=== PATIENT | male | born 1940 | race Caucasian/White ===

== ENCOUNTER 2018-12-26 17:08 | Inpatient (IN) ==
--- NOTE | 2018-12-26 17:44 | Emergency Department Note ---
Male Urogenital HPI - General Chief complaint: Urogenital-Male Stated complaint: Possible UTI Time Seen by Provider: 12/26/18 17:27 Mode of arrival: ambulatory - History of Present Illness HPI Narrative: 78-year-old male patient was referred to emergency department via his primary care provider for worsening dementia. Upon arrival is accompanied by his who tells me he's been diagnosed with dementia since 2016. He worsened significantly in 2018. Unfortunately last several weeks he has been much more forgetful and a bit more resistant to care. He had an appointment with another provider up in [place] and I'm told that he tried to leave his home half dressed ("without his underwear"). His contacted his new primary care provider who recommended he come to the emergency department for workup of potential UTI or other abnormality that may be causing some of his worsening symptoms. Upon arrival, patient is alert and talkative. He answers most likely questions appropriately with regard of who he is and where he is at. He did not know it was versus Sunday. She denies sites of pain. He denies recent fever, sweats, chills. He denies shortness of breath. He denies retrosternal chest pain or palpitations. He denies abdominal pain, nausea, vomiting, or diarrhea. He does admit to occasional dysuria. He denies hematuria. She denies focal weakness. He does use a cane for ambulation. A review of his active problems shows the following: Chronic kidney disease stag e IV, atherosclerosis, systolic CHF, polydipsia, shortness of breath, easy bruising, weakness, fatigue, neuropathy, glaucoma, DVT, prostatitis, urinary incontinence, epistaxis, degenerative joint disease, sleep apnea, hypertension, mitral valve insufficiency, ischemic cardiomyopathy, A. fib, hyperlipidemia, hydrocephalus, type 2 diabetes, eczema, polymyalgia rheumatica, YAZMIN. - Related Data Home Medications Medication Instructions Recorded Confirmed Aspirin [Ángel Chewable Aspirin] 81 mg PO DAILY 11/13/14 12/04/18 Clopidogrel [Plavix] 75 mg PO DAILY 11/13/14 12/04/18 Omeprazole [PriLOSEC] 20 mg PO ACB 11/13/14 12/26/18 Lacto.acidophilus-Bif.animalis 1 cap PO QDAY 01/29/17 12/26/18 atorvastatin 40 mg tablet 40 mg PO QDAY 01/29/17 12/04/18 duloxetine 60 mg capsule,delayed 60 mg PO QDAY 01/29/17 12/26/18 release hydrocodone 5 mg-acetaminophen 325 1 tab PO .Q4-6H tab 01/29/17 12/26/18 mg tablet memantine 10 mg tablet 10 mg PO BID 01/29/17 12/26/18 multivitamin 1 tab PO QDAY 01/29/17 12/26/18 budesonide 3 mg 6 mg PO QAM 07/25/18 12/04/18 capsule,delayed,extended release calcium carbonate 500 mg calcium 500 mg PO QDAY tab 07/25/18 12/04/18 (1,250 mg) tablet colestipol 1 gram tablet 1 g PO QDAY tab 07/25/18 12/04/18 nitroglycerin 0.4 mg sublingual 0.4 mg SUBLINGUAL Q5-15M PRN 07/25/18 12/26/18 tablet psyllium husk 3.4 gram/5.4 gram 1 tbsp PO QDAY 07/25/18 12/26/18 oral powder prednisone 1 mg tablet 3 mg PO QDAY tab 08/21/18 12/26/18 tamsulosin 0.4 mg capsule 0.4 mg PO QDAY 08/21/18 12/26/18 isosorbide mononitrate 30 mg 30 mg PO QHS tab 08/26/18 12/26/18 tablet,extended release 24 hr Previous Rx's Medication Instructions Recorded solifenacin 10 mg tablet 10 mg PO QDAY #30 tab 11/21/18 spironolactone 25 mg tablet 25 mg PO QDAY #90 tab 12/04/18 torsemide 20 mg tablet 60 mg PO QDAY #300 tab 12/04/18 Allergies Allergy/AdvReac Type Severity Reaction Status Date / Time niacin Allergy Unknown Unknown Verified 11/21/18 13:22 [From Niaspan Extended-Release] Review of Systems All systems ED: reviewed and negative except as stated. Past Medical History - Past Medical History Medical history: Reports: arthritis, atrial fibrillation, CHF, CAD (coronary artery disease), DM, hyperlipidemia, hypertension, renal disease, other (Obstructive sleep apnea, carotid arterial disease, ischemic cardiomyopathy, venous thromboembolism, idiopathic hydrocephalus) Surgical history ED: Reports: angioplasty/stent, coronary bypass (CABG), orthopedic, other (Carpal tunnel, foot, knee, hand, ulnar nerve), pacemaker/AICD - Social History smoking status: Former smoker Physical Exam Limitations: no limitations General appearance: alert, in no apparent distress Head: atraumatic, normocephalic Eye: Present: normal appearance, PERRL, EOMI. Absent: scleral icterus, conjunctival injection ENT: Present: normal oropharynx, mucous membranes moist Neck: Present: trachea midline. Absent: lymphadenopathy, thyromegaly Chest: Present: symmetric chest wall rise Respiratory: Present: normal lung sounds bilaterally. Absent: respiratory distress, wheezes, stridor, accessory muscle use, prolonged expiratory phase Cardiovascular: Present: regular rate, normal rhythm. Absent: systolic murmur, diastolic murmur Abdominal: Present: soft. Absent: distention, tenderness, guarding, rebound, rigidity, organomegaly, mass Extremities: Absent: pedal edema, pretibial edema, calf tenderness Neurological: Present: alert, oriented X3 (orientated to person, place, and time a day. Disorientated to day of week or 2 current events.). Absent: normal gait Psychiatric: Present: normal affect, normal mood Skin: Present: warm, dry Course Course Narrative: Patient was brought into the emergency department and a history and physical exam was performed. Saline lock was established and routine laboratory studies were drawn. Two-view chest x-ray was obtained and reviewed. Patient was given normal saline 250 mL bolus. A review of his laboratory studies show the following: CBC WBC 11.1, RBC 4.51, hemoglobin 12.6, hematocrit 39.5, granulocytes percent 90.6, granulocyte #10.1. CMP potassium 5.5, chloride 90, anion gap 17, BUN 108, creatinine 3.8, GFR 14, glucose 109, all others are normal limits. Lactic acid 1.9. Urinalysis showing clear yellow urine with specific gravity 1.013 and pH 6.0. Negative for evidence of infection. Chest x-ray read by the radiologist as no acute pulmonary parenchymal infiltrate or evidence of CHF. There was no interval change since 11/13/14. After reviewing all the data I reached out to the patient's correctional guard (Dr. Holly) and discussed the patient's case with him. At this time the correctional guard re commended that the patient be admitted to the hospital. He recommended gentle rehydration with normal saline at 100 ml/hour. He also mentioned discontinuing his diuretics while at hospitalized. He mentioned that he would follow the patient tomorrow morning. With this in mind, I reached out to the hospitalist (Dr. Deal) explaining my discussion with the correctional guard and the need for the patient be admitted. At this time Dr. Deal did consent to evaluate the patient admitted to the hospital. I spoke to the family and explained all of this to them. They verbalized understanding. Patient has remained hemodynamically stable throughout his entire time in the emergency department. As mentioned, he is going be admitted to the hospital under the care of Dr. Deal. All further treatment decisions and modalities will be carried out by the hospitalist. Vital Signs Temperature 97.3 F 12/26/18 17:09 Pulse Rate 96 H 12/26/18 17:09 Respiratory Rate 16 12/26/18 17:09 Blood Pressure 123/67 12/26/18 17:09 Pulse Oximetry (%) 96 12/26/18 17:09 Temperature 97.3 F 12/26/18 17:09 Pulse Rate 60 12/26/18 21:28 Respiratory Rate 18 12/26/18 21:28 Blood Pressure 139/71 12/26/18 21:28 Pulse Oximetry (%) 100 12/26/18 21:28 Urogenital-Male - Lab Data Lab results reviewed: Yes I reviewed the patient's lab results. Result diagrams: 12/26/18 18:01 12/26/18 18:01 Lab Results 12/26/18 12/26/18 12/26/18 Range/Units 18:01 18:01 19:24 WBC 11.1 H (4.5-11.0) K/mcL RBC 4.51 (4.50-5.90) M/mcL Hgb 12.6 L (13.5-16.5) g/dL Hct 39.5 L (41.0-55.0) % MCV 87.6 (80.0-100.0) fL MCH 28.0 (26.0-34.0) pg MCHC 32.0 (31.0-36.0) g/dL RDW 19.2 H (11.5-14.5) % Plt Count 296 (140-440) K/mcL MPV 8.6 (7.4-10.4) fL Gran % 90.6 H (38.0-78.0) % Lymph % (Auto) 3.5 L (15.5-49.0) % [place] % (Auto) 5.9 (1.0-12.0) % Eos % (Auto) 0 (0.0-7.0) % Baso % (Auto) 0 (0.0-2.0) % Gran # 10.1 H (1.8-8.0) K/mcL Lymph # (Auto) 0.4 L (1.5-4.8) K/mcL [place] # (Auto) 0.7 (0.1-0.9) K/mcL Eos # (Auto) 0 (0.0-0.7) K/mcL Baso # (Auto) 0 (0.0-0.3) K/mcL VBG Lactic Acid (0.5-2.0) mmol/L Sodium 134 (133-145) mmol/L Potassium 5.5 H (3.3-5.1) mmol/L Chloride 90 L (96-108) mmol/L Carbon Dioxide 27 (22-30) mmol/L Anion Gap 17.0 H (8-16) BUN 108 H* (8-23) mg/dl Creatinine 3.8 H (0.7-1.2) mg/dl GFR Calculation 14 Glucose 109 H (70-105) mg/dL Calcium 9.7 (8.6-10.4) mg/dl Total Bilirubin 0.5 (0.0-1.0) mg/dL AST 22 (0-37) U/l ALT 20 (0-40) U/l Alkaline Phosphatase 84 (39-117) U/L Total Protein 7.9 (5.9-8.4) gm/dL Albumin 4.4 (3.2-5.2) gm/dL Globulin 3.5 (2.2-3.7) gm/dL Albumin/Globulin Ratio 1.3 (1.0-2.3) Urine Color Yellow Urine Appearance Clear Urine pH 6.0 (5.0-9.0) Ur Specific [place] 1.013 (1.000-1.035) Urine Protein Neg (NEG) mg/dL Urine Glucose (UA) Negative (NEG) mg/dL Urine Ketones Neg (NEG) mg/dL Urine Occult Blood Neg (<0.03) mg/dL Urine Nitrate Neg (NEG) Urine Bilirubin Neg (NEG) mg/dL Urine Urobilinogen Neg (NEG) mg/dL Ur Leukocyte Esterase Neg (NEG) /uL 12/26/18 Range/Units 19:35 WBC (4.5-11.0) K/mcL RBC (4.50-5.90) M/mcL Hgb (13.5-16.5) g/dL Hct (41.0-55.0) % MCV (80.0-100.0) fL MCH (26.0-34.0) pg MCHC (31.0-36.0) g/dL RDW (11.5-14.5) % Plt Count (140-440) K/mcL MPV (7.4-10.4) fL Gran % (38.0-78.0) % Lymph % (Auto) (15.5-49.0) % [place] % (Auto) (1.0-12.0) % Eos % (Auto) (0.0-7.0) % Baso % (Auto) (0.0-2.0) % Gran # (1.8-8.0) K/mcL Lymph # (Auto) (1.5-4.8) K/mcL [place] # (Auto) (0.1-0.9) K/mcL Eos # (Auto) (0.0-0.7) K/mcL Baso # (Auto) (0.0-0.3) K/mcL VBG Lactic Acid 1.9 (0.5-2.0) mmol/L Sodium (133-145) mmol/L Potassium (3.3-5.1) mmol/L Chloride (96-108) mmol/L Carbon Dioxide (22-30) mmol/L Anion Gap (8-16) BUN (8-23) mg/dl Creatinine (0.7-1.2) mg/dl GFR Calculation Glucose (70-105) mg/dL Calcium (8.6-10.4) mg/dl Total Bilirubin (0.0-1.0) mg/dL AST (0-37) U/l ALT (0-40) U/l Alkaline Phosphatase (39-117) U/L Total Protein (5.9-8.4) gm/dL Albumin (3.2-5.2) gm/dL Globulin (2.2-3.7) gm/dL Albumin/Globulin Ratio (1.0-2.3) Urine Color Urine Appearance Urine pH (5.0-9.0) Ur Specific [place] (1.000-1.035) Urine Protein (NEG) mg/dL Urine Glucose (UA) (NEG) mg/dL Urine Ketones (NEG) mg/dL Urine Occult Blood (<0.03) mg/dL Urine Nitrate (NEG) Urine Bilirubin (NEG) mg/dL Urine Urobilinogen (NEG) mg/dL Ur Leukocyte Esterase (NEG) /uL - Radiology Data Radiology results reviewed: Yes I reviewed the patient's radiology results. Ordering Physician: Angus Crouch PA-C Date of Service: 12/26/18 Procedure(s): XR chest 2V Accession Number(s): [id number] INDICATION: Dyspnea TECHNIQUE: PA and lateral upright chest x-ray COMPARISON: Previous chest x-rays dated 11/13/2014, 07/15/2014, 03/01/2014 FINDINGS:Previous median sternotomy. No change in left transvenous pacemaker leads. There is a right-sided ventriculoperitoneal shunt catheter No focal pulmonary parenchymal infiltrate or mass. Heart size and vascularity are within normal limits. No evidence for congestive heart failure. There is a coronary stent identified. No acute abnormality or interval change IMPRESSION: 1. No acute pulmonary parenchymal infiltrate. No evidence for congestive heart failure 2. No acute abnormality or interval change since 11/13/2014 Interpreted and Authenticated by: Todd Leonardo 12/26/18 Disposition Pt seen by [facility]/PA only: Yes Clinical Impression: Acute on chronic renal failure Qualifiers: Acute renal failure type: unspecified Chronic kidney disease stage: stage 4 (severe) Qualified Code(s): N17.9 - Acute kidney failure, unspecified Dementia Qualifiers: Dementia type: unspecified type Dementia behavioral disturbance: with behavioral disturbance Qualified Code(s): F03.91 - Unspecified dementia with behavioral disturbance Congestive heart failure Qualifiers: Heart failure type: unspecified Heart failure chronicity: chronic Qualified Code(s): I50.9 - Heart failure, unspecified Disposition: Xfer As Inpt ([facility]) Condition: Fair Instructions: Heart Failure (ED), Chronic Kidney Disease (ED) Additional Instructions: The patient is being admitted to the hospital under the care of the hospitalist (Dr. Deal). All further treatment decisions and modalities will be carried out by the hospitalist. Referrals: Inderjit Veronica MD [Primary Care Provider] - Karan Holly MD [Physician] - Time of Disposition: 21:52
[2018-12-26] MEDS ORDERED: 0.9 % SODIUM CHLORIDE 250 ML IV ONE (17:53)
[2018-12-26 18:49] LABS: Basophils # (Auto) 0 K/mcL (0.0-0.3); Basophils % (Auto) 0 % (0.0-2.0); Eosinophils # (Auto) 0 K/mcL (0.0-0.7); Eosinophils % (Auto) 0 % (0.0-7.0); Granulocytes % (Auto) 90.6 % (38.0-78.0); Hematocrit 39.5 % (41.0-55.0); Hemoglobin 12.6 g/dL (13.5-16.5); Lymphocytes # (Auto) 0.4 K/mcL (1.5-4.8); Lymphocytes % (Auto) 3.5 % (15.5-49.0); Mean Cell Volume 87.6 fL (80.0-100.0); Mean Platelet Volume 8.6 fL (7.4-10.4); Monocytes # (Auto) 0.7 K/mcL (0.1-0.9); Monocytes % (Auto) 5.9 % (1.0-12.0); Platelet Count 296 K/mcL (140-440); RBC 4.51 M/mcL (4.50-5.90); Red Cell Distribution Width 19.2 % (11.5-14.5); WBC 11.1 K/mcL (4.5-11.0)
[2018-12-26 19:09] LABS: ALT/SGPT 20 U/l (0-40); AST/SGOT 22 U/l (0-37); Albumin 4.4 gm/dL (3.2-5.2); Albumin/Globulin Ratio 1.3 (1.0-2.3); Alkaline Phosphatase 84 U/L (39-117); Bilirubin,Total 0.5 mg/dL (0.0-1.0); Blood Urea Nitrogen 108 mg/dl (8-23); Calcium 9.7 mg/dl (8.6-10.4); Carbon Dioxide 27 mmol/L (22-30); Chloride 90 mmol/L (96-108); Globulin 3.5 gm/dL (2.2-3.7); Glomerular Filtration Rate 14; Glucose 109 mg/dL (70-105)
--- NOTE | 2018-12-26 19:09 | XRay Report ---
INDICATION: Dyspnea TECHNIQUE: PA and lateral upright chest x-ray COMPARISON: Previous chest x-rays dated 11/13/2014, 07/15/2014, 03/01/2014 FINDINGS:Previous median sternotomy. No change in left transvenous pacemaker leads. There is a right-sided ventriculoperitoneal shunt catheter No focal pulmonary parenchymal infiltrate or mass. Heart size and vascularity are within normal limits. No evidence for congestive heart failure. There is a coronary stent identified. No acute abnormality or interval change IMPRESSION: 1. No acute pulmonary parenchymal infiltrate. No evidence for congestive heart failure 2. No acute abnormality or interval change since 11/13/2014 Interpreted and Authenticated by: Todd Leonardo 12/26/18
[2018-12-26 20:31] LABS: Appearance,Urine CLEAR; Bilirubin,Urine NEG (NEG); Color,Urine YELLOW; Glucose,Urine (UA) NEGATIVE (NEG); Ketones,Urine NEG (NEG); Leukocyte Esterase,Urine NEG /uL (NEG); Nitrate,Urine NEG (NEG); Protein,Urine NEG (NEG); Specific Gravity,Urine 1.013 (1.000-1.035); Urine Blood NEG mg/dL (<0.03); Urobilinogen,Urine NEG (NEG)
--- NOTE | 2018-12-26 22:27 | Internal Med History&Physical ---
Medical - H&P: HPI Patient information: Note initiated : 12/26/18 at 10:25 pm Service Date, if different from initiated Date: [] Patient: Vini Garrett a 78 y/o M admitted on for Possible UTI. Chief Complaint: Acute renal failure on labs History of present illness: Mr. Garrett is a 78 year old M with a history of hypertension, diet controlled diabetes mellitus, CAD with ischemic cardiomyopathy, atrial fibrillation and CKD stage IV in the setting of Type 2 diabetes. History is obtained in speaking with the patient, which is somewhat limited due to cognitive impairment, as well as reviewing old records and speaking with the provider in the emergency department. Patient 78 as noted, has a history of dementia who was diagnosed in 2016, which appeared to worsen in 2018. He has worsened in the last few weeks, and his PCP had him sent to the emergency room for further evaluation to look for infection or other causes of worsening mentation. When I speak with the patient and ask him why he was here, he states his and brought him here and he was complaining that he was unable to swallow. This started yesterday and that food did not "want to go down" (I note he does see GI for a Schatzki's ring and has an upcoming appointment). When specifically asking about renal function, he notes that he continues to have good urine output, does not seem to have changed recently. His medications are set out in a pillbox and is been taking all of his prescribed meds, his helps to oversee his medications. He notes that his memory could be doing better and that he notes that he is forgetting things. Is not left items running or the stove turned on however. Otherwise, he notes no edema (appears he was having edema and rales on exam when seen by nephrology earlier this month, which point torsemide was increased and spironolactone was added to his regimen). He does not get short of breath when lying supine. He does have some shortness of breath however today, without cough or sputum production. He denies any chest pain or tightness. No abdominal pain, no nausea vomiting or diarrhea. He is noticed no focal weaknesses. He does bruise easily, which is chronic. Said no fevers or chills, no headache, no vision changes, no sore throat, no rhinorrhea. Evaluation in the ED was notable for BUN of 108 and a creatinine of 3.8. On December 04 his creatinine was 2.6, on September 24 it was 1.8. Patient is being hospitalized for acute renal failure. 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) Mild mitral insufficiency (Chronic) Sinus node dysfunction (Chronic) Hyperlipidemia (Chronic) Esophageal reflux (Chronic) Schatzki's ring PMR (polymyalgia rheumatica) (Chronic) YAZMIN (obstructive sleep apnea) (Chronic) Polydipsia (Chronic) Shortness of breath (Chronic) Blurred vision (Chronic) Back pain (Chronic) Lumbar degenerative disc disease (Chronic) Muscular weakness (Chronic) Joint pain (Chronic) Urine frequency (Chronic) Constipation (Chronic) Dyspnea on exertion (Chronic) Spinal stenosis (Chronic) Neuropathy (Chronic) Glaucoma (Chronic) Prostatitis (Chronic) Urinary incontinence (Chronic) Degenerative joint disease (Chronic) Bilateral feet Hydrocephalus, unspecified (Chronic) CTS (carpal tunnel syndrome) (Chronic) Eczema (Chronic) Polyneuropathy (Chronic) Insomnia (Chronic) Depression (Chronic) Surgical history: History of bilateral carpal tunnel release (Chronic ~2005) 2005 and 2006 History of coronary artery bypass graft x 2 (Chronic ~1997) History of foot surgery (Chronic ~1985) Left History of hand surgery (Chronic ~2016) Right hand lanvary History of heart artery stent (Chronic ~11/2013) Three heart stents placed History of knee surgery (Chronic ~1984) Bilateral; 1983 and 1984 History of pacemaker (Chronic ~11/2008) LIFT12 model #ZEDR-01, serial #[id number] History of surgery (Chronic ~06/2013) Right ulnar nerve S/P surgery on nasal septum (Chronic ~1977) Deviated septum Pertinent family history: Father , Onset Age: 68 Heart disease Mother , Onset Age: 81 Alzheimer disease GI malignancy Heart disease Grandfather Paternal Diabetes Paternal Brother , Onset Age: 59 Heart disease Myocardial infarction Social history: marital status: smoking status: Former smoker alcohol intake frequency: 0-2 drinks per day Medical - H&P: Meds Home Medications Medication Instructions Recorded Confirmed Type Aspirin [Ángel Chewable Aspirin] 81 mg PO DAILY 11/13/14 12/04/18 History Clopidogrel [Plavix] 75 mg PO DAILY 11/13/14 12/04/18 History Omeprazole [PriLOSEC] 20 mg PO ACB 11/13/14 12/26/18 History Lacto.acidophilus-Bif.animalis 1 cap PO QDAY 01/29/17 12/26/18 History atorvastatin 40 mg tablet 40 mg PO QDAY 01/29/17 12/04/18 History duloxetine 60 mg capsule,delayed 60 mg PO QDAY 01/29/17 12/26/18 History release hydrocodone 5 mg-acetaminophen 325 1 tab PO .Q4-6H tab 01/29/17 12/26/18 History mg tablet memantine 10 mg tablet 10 mg PO BID 01/29/17 12/26/18 History multivitamin 1 tab PO QDAY 01/29/17 12/26/18 History budesonide 3 mg 6 mg PO QAM 07/25/18 12/04/18 History capsule,delayed,extended release calcium carbonate 500 mg calcium 500 mg PO QDAY tab 07/25/18 12/04/18 History (1,250 mg) tablet colestipol 1 gram tablet 1 g PO QDAY tab 07/25/18 12/04/18 History nitroglycerin 0.4 mg sublingual 0.4 mg SUBLINGUAL Q5-15M PRN 07/25/18 12/26/18 History tablet psyllium husk 3.4 gram/5.4 gram 1 tbsp PO QDAY 07/25/18 12/26/18 History oral powder prednisone 1 mg tablet 3 mg PO QDAY tab 08/21/18 12/26/18 History tamsulosin 0.4 mg capsule 0.4 mg PO QDAY 08/21/18 12/26/18 History isosorbide mononitrate 30 mg 30 mg PO QHS tab 08/26/18 12/26/18 History tablet,extended release 24 hr solifenacin 10 mg tablet 10 mg PO QDAY #30 tab 11/21/18 12/26/18 Rx spironolactone 25 mg tablet 25 mg PO QDAY #90 tab 12/04/18 12/26/18 Rx torsemide 20 mg tablet 60 mg PO QDAY #300 tab 12/04/18 12/26/18 Rx Allergies Allergy/AdvReac Type Severity Reaction Status Date / Time niacin Allergy Unknown Unknown Verified 11/21/18 13:22 [From Niaspan Extended-Release] Medical - H&P: Exam - Constitutional Vitals: Temp Pulse Resp BP Pulse Ox 97.3 F 60 18 139/71 100 12/26/18 17:09 12/26/18 21:28 12/26/18 21:28 12/26/18 21:28 12/26/18 21:28 Exam: GENERAL: Alert, oriented, in no acute distress. Cooperative, appears stated age, sitting up in bed. HEENT: Atraumatic. PERRL at 3 mm, conjunctiva clear, no scleral icterus. Hearing grossly intact. Oropharynx with tacky mucous membranes, no lip or gum lesions. NECK: Supple without meningismus, no thyromegaly appreciated. RESPIRATORY: Moderate coarse rales at the right lower lung field, few rales at the left base. No wheezes or rhonchi. Respiratory effort is unlabored. CARDIOVASCULAR: Irregular rhythm, rate is controlled. No murmur appreciated. Well-healed median sternotomy scar. Trace peripheral edema with chronic stasis changes bilateral lower extremities. Carotid pulses 2+ without bruit. GI: Abdomen soft, nontender, no guarding or rebound. Bowel sounds are present. MUSCULOSKELETAL: No joint erythema or swelling, flexion contracture of the right hand. Otherwise normal range of motion in extremities. SKIN: Warm and dry, multiple ecchymoses of various stages, particularly in the upper extremities. Chronic stasis changes bilateral distal legs. Skin turgor is decreased. NEUROLOGIC: Cranial nerves II through XII grossly intact. Muscle mass diminished. Strength 5/5 in the upper and lower extremities for age. Sensation intact to light touch bilaterally. Deep tendon reflexes 2+ at the biceps and patella. PSYCHIATRIC: Alert, oriented to person, place, not quite sure why he is at the hospital however. Decreased insight into situation. Medical - H&P: Reslt - Labs CBC & Chem 7: 12/26/18 18:01 12/26/18 18:01 Labs: Short CBC 12/26/18 Range/Units 18:01 WBC 11.1 H (4.5-11.0) K/mcL Hgb 12.6 L (13.5-16.5) g/dL Hct 39.5 L (41.0-55.0) % Plt Count 296 (140-440) K/mcL BMP 12/26/18 18:01 Sodium 134 Potassium 5.5 H Chloride 90 L Carbon Dioxide 27 BUN 108 H* Creatinine 3.8 H Glucose 109 H Calcium 9.7 Liver Function 12/26/18 Range/Units 18:01 Total Bilirubin 0.5 (0.0-1.0) mg/dL AST 22 (0-37) U/l ALT 20 (0-40) U/l Alkaline Phosphatase 84 (39-117) U/L Albumin 4.4 (3.2-5.2) gm/dL Urine 12/26/18 Range/Units 19:24 Urine Color Yellow Urine Appearance Clear Urine pH 6.0 (5.0-9.0) Ur Specific [place] 1.013 (1.000-1.035) Urine Protein Neg (NEG) mg/dL Urine Glucose (UA) Negative (NEG) mg/dL - Imaging and Cardiology Chest x-ray Status: image reviewed by me Additional comments: IMPRESSION: 1. No acute pulmonary parenchymal infiltrate. No evidence for congestive heart failure 2. No acute abnormality or interval change since 11/13/2014 Medical - H&P: A/P - Narrative A/P Narrative: 78-year-old male with chronic kidney disease, most recently described as stage IV with creatinine of 2.6 on November 27 presenting with worsening mentation in the setting of known dementia, found to have acute on chronic renal failure. Acute renal failure on chronic kidney disease. Creatinine is up to 3.8 from 2.6 in 4 weeks, BUN from the 60s to 108. On December 04, torsemide was increased to 60 mg daily and spironolactone was added at 25 mg. This may represent overdiuresis and prerenal renal failure. Urinary sediment was bland without evidence of casts to suggest ATN. No other new medications concerning for AIN. He does have underlying bilateral renal artery stenoses, however less likely this represents progression of atherosclerotic renal disease. Plan: Inpatient admission Hold diuretics Gentle hydration with normal saline over night Follow renal function electrolytes Strict intake and output Avoid nephrotoxins Hyperkalemia. 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 Potassium is not critically elevated, reading of 5.5. Plan: Hydrate to improve renal function, hold spironolactone, telemetry monitoring. Ischemic cardiomyopathy with known coronary artery disease. Mention of echocardiogram in clinic notes, suggest concentric LVH with inferolateral wall motion abnormalities and ejection fraction of 50% (unclear how old these data are). Will need to monitor carefully for evidence of volume overload. Patient certainly looks dry currently and still has moderate crackles, right lower lung field greater than the left. He may have crackles from a primary pulmonary source and not from pulmonary edema. Plan: Continue medical management of CAD, except holding diuretics as above. Diet-controlled type 2 diabetes. Plan: Controlled carbohydrate/renal diet, low-dose sliding scale insulin. Hypertension, in part due to renal vascular causes. Blood pressure acceptable at this time Plan: Continue with nitrates. Loop diuretic and spinal lactone being held due t o renal failure. Overactive bladder, BPH. On Vesicare and tamsulosin at home. Plan: Continue Normochromic anemia. Mild. Appears stable. Suspect secondary to chronic kidney disease. Plan: Monitor. Prophylaxis: Subcutaneous heparin CODE STATUS: DO NOT RESUSCITATE
[2018-12-27] MEDS ORDERED: DEXTROSE 31 GM ORAL.SUSP PO PRN ×2 (00:06→17:53)
[2018-12-27] MEDS ORDERED: ONDANSETRON 4 MG/2 ML VIAL IV PRN ×2 (00:06→17:53)
[2018-12-27] MEDS ORDERED: HYDROcodone/APAP 5/325MG TABLET PO PRN ×2 (00:06→17:53)
[2018-12-27] MEDS ORDERED: DEXTROSE 50% 50 ML VIAL IV PRN ×2 (00:06→17:53)
[2018-12-27] MEDS ORDERED: ACETAMINOPHEN 325 MG TABLET PO PRN ×2 (00:06→17:53)
[2018-12-27] MEDS: 0.9 % SODIUM CHLORIDE 1,000 ML IV SCH ×3 (01:55→22:13)
[2018-12-27 05:27] LABS: Basophils # (Auto) 0 K/mcL (0.0-0.3); Basophils % (Auto) 0.3 % (0.0-2.0); Eosinophils # (Auto) 0.2 K/mcL (0.0-0.7); Eosinophils % (Auto) 1.5 % (0.0-7.0); Granulocytes % (Auto) 75.6 % (38.0-78.0); Hematocrit 33.4 % (41.0-55.0); Hemoglobin 10.9 g/dL (13.5-16.5); Lymphocytes % (Auto) 9.6 % (15.5-49.0); Mean Cell Volume 87.4 fL (80.0-100.0); Mean Corpuscular HGB Conc 32.8 g/dL (31.0-36.0); Mean Platelet Volume 8.6 fL (7.4-10.4); Monocytes # (Auto) 1.4 K/mcL (0.1-0.9); Platelet Count 249 K/mcL (140-440); RBC 3.82 M/mcL (4.50-5.90); Red Cell Distribution Width 18.9 % (11.5-14.5); WBC 10.7 K/mcL (4.5-11.0)
[2018-12-27] MEDS: 0.9 % SODIUM CHLORIDE 10 ML SYRINGE IV SCH ×3 (06:00→22:07)
[2018-12-27 06:17] LABS: Hemoglobin A1C 6.6 % HGB (4.0-6.0)
[2018-12-27 07:04] LABS: ALT/SGPT 14 U/l (0-40); AST/SGOT 21 U/l (0-37); Albumin 3.7 gm/dL (3.2-5.2); Albumin/Globulin Ratio 1.3 (1.0-2.3); Alkaline Phosphatase 68 U/L (39-117); Bilirubin,Direct < 0.2 mg/dL (0.0-0.3); Bilirubin,Total 0.5 mg/dL (0.0-1.0); Blood Urea Nitrogen 98 mg/dl (8-23); Carbon Dioxide 29 mmol/L (22-30); Chloride 98 mmol/L (96-108); Globulin 2.9 gm/dL (2.2-3.7); Glomerular Filtration Rate 17; Glucose 81 mg/dL (70-105); Lactate Dehydrogenase 306 U/L (94-250); Phosphorous 3.5 mg/dL (2.7-4.5); Triglycerides 116 mg/dl (<150); Uric Acid 11.6 mg/dL (2.5-8.0)
[2018-12-27] MEDS ORDERED: OMEPRAZOLE 20 MG CAPSULE PO SCH (07:30)
--- NOTE | 2018-12-27 08:04 | Nephrology Consult Note ---
History of Present Illness - Reason for Consult Patient information: Note initiated : 12/27/18 at 8:01 am Service Date, if different from initiated Date: [] Patient: Vini Garrett 78 y/o M admitted on 12/26/18 for Possible UTI. Chief Complaint: [] Consult date: 12/27/18 chronic renal failure - Chief Complaint Patient sent to ER with alteration in MS by PCP - History of Present Illness The patient is a 78 yr male with a baseline serum creatinine of around 2 mg/dl in the setting of known vascular disease, HTN, combined systolic and diastolic CHF, DM with HgA1c 6.5%. His urinalysis is w/o proteinuria so the most likely diagnosis of his decreased GFR is HTN and renovascular disease. Due to dementia and other comorbidities it was recommended by vascular surgery to not consider bypass or stenting of his renal arteries. When last seen in [facility] renal clinic, he was edematous and full of crackles, the prior Echo suggested a decreased EF of 45% (see below). His diuretic dose was doubled. The result was an increase in his BUN to >100 and Creatinine elevated to 3.8 mg/dl. His baseline is that of dementia and he requires his 's help to care for him. This has become difficult as she iis now receiving chemoRx at [facility]. The extent of his dementia, poor performance, lack of ADL skills has become more noticeable. The called his new PCP and recommended he head to the ED to rule-out any reversible causes of altered MS. In the ED there was no convincing evidence of a UTI, PNA or CVA. He was edema free and with worsening renal fx and an abnormal BUN/Cr ratio in the setting of his recent increase in loop diuretics, it seems he may be over diuresed. His BNP was elevated but the repeat ECHO today was read with diastolic dysfunction, LHV and no decrease in LVEF. His diuretic has been on hold and by morning there was some improvement in his BUN/Creatinine. Laboratory Results - last 48 hr 12/26/18 12/26/18 12/26/18 18:01 18:01 19:24 WBC 11.1 H RBC 4.51 Hgb 12.6 L Hct 39.5 L MCV 87.6 MCH 28.0 MCHC 32.0 RDW 19.2 H Plt Count 296 MPV 8.6 Gran % 90.6 H Lymph % (Auto) 3.5 L [place] % (Auto) 5.9 Eos % (Auto) 0 Baso % (Auto) 0 Gran # 10.1 H Lymph # (Auto) 0.4 L [place] # (Auto) 0.7 Eos # (Auto) 0 Baso # (Auto) 0 VBG Lactic Acid Sodium 134 Potassium 5.5 H Chloride 90 L Carbon Dioxide 27 Anion Gap 17.0 H BUN 108 H* Creatinine 3.8 H GFR Calculation 14 Glucose 109 H Hemoglobin A1c Estim Average Glucose Uric Acid Calcium 9.7 Phosphorus Magnesium Total Bilirubin 0.5 Direct Bilirubin GGT AST 22 ALT 20 Alkaline Phosphatase 84 Lactate Dehydrogenase Total Protein 7.9 Albumin 4.4 Globulin 3.5 Albumin/Globulin Ratio 1.3 Triglycerides Urine Color Yellow Urine Appearance Clear Urine pH 6.0 Ur Specific [place] 1.013 Urine Protein Neg Urine Glucose (UA) Negative Urine Ketones Neg Urine Occult Blood Neg Urine Nitrate Neg Urine Bilirubin Neg Urine Urobilinogen Neg Ur Leukocyte Esterase Neg 12/26/18 12/27/18 12/27/18 19:35 04:05 04:05 WBC 10.7 RBC 3.82 L Hgb 10.9 L Hct 33.4 L MCV 87.4 MCH 28.6 MCHC 32.8 RDW 18.9 H Plt Count 249 MPV 8.6 Gran % 75.6 Lymph % (Auto) 9.6 L [place] % (Auto) 13.0 H Eos % (Auto) 1.5 Baso % (Auto) 0.3 Gran # 8.1 H Lymph # (Auto) 1.0 L [place] # (Auto) 1.4 H Eos # (Auto) 0.2 Baso # (Auto) 0 VBG Lactic Acid 1.9 Sodium Potassium Chloride Carbon Dioxide Anion Gap BUN Creatinine GFR Calculation Glucose Hemoglobin A1c 6.6 H Estim Average Glucose 143 Uric Acid Calcium Phosphorus Magnesium Total Bilirubin Direct Bilirubin GGT AST ALT Alkaline Phosphatase Lactate Dehydrogenase Total Protein Albumin Globulin Albumin/Globulin Ratio Triglycerides Urine Color Urine Appearance Urine pH Ur Specific [place] Urine Protein Urine Glucose (UA) Urine Ketones Urine Occult Blood Urine Nitrate Urine Bilirubin Urine Urobilinogen Ur Leukocyte Esterase 12/27/18 04:05 WBC RBC Hgb Hct MCV MCH MCHC RDW Plt Count MPV Gran % Lymph % (Auto) [place] % (Auto) Eos % (Auto) Baso % (Auto) Gran # Lymph # (Auto) [place] # (Auto) Eos # (Auto) Baso # (Auto) VBG Lactic Acid Sodium 139 Potassium 4.6 Chloride 98 Carbon Dioxide 29 Anion Gap 12.0 BUN 98 H Creatinine 3.3 H GFR Calculation 17 Glucose 81 Hemoglobin A1c Estim Average Glucose Uric Acid 11.6 H Calcium 9.0 Phosphorus 3.5 Magnesium 2.8 H Total Bilirubin 0.5 Direct Bilirubin < 0.2 GGT 16 AST 21 ALT 14 Alkaline Phosphatase 68 Lactate Dehydrogenase 306 H Total Protein 6.6 Albumin 3.7 Globulin 2.9 Albumin/Globulin Ratio 1.3 Triglycerides 116 Urine Color Urine Appearance Urine pH Ur Specific [place] Urine Protein Urine Glucose (UA) Urine Ketones Urine Occult Blood Urine Nitrate Urine Bilirubin Urine Urobilinogen Ur Leukocyte Esterase Serum Creatinine While I expect his GFR to return towards baseline, this is only a partial cause in his mental status and functional status and the truth be known, he will likely require placement if his can no longer provide for his care in the home setting. His dementia and poor functional status make him an extremely poor dialysis candidate and I would argue for conservative treatment of his CKD. 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) Mild mitral insufficiency (Chronic) Sinus node dysfunction (Chronic) Hyperlipidemia (Chronic) Esophageal reflux (Chronic) Schatzki's ring PMR (polymyalgia rheumatica) (Chronic) YAZMIN (obstructive sleep apnea) (Chronic) Polydipsia (Chronic) Shortness of breath (Chronic) Blurred vision (Chronic) Back pain (Chronic) Lumbar degenerative disc disease (Chronic) Muscular weakness (Chronic) Joint pain (Chronic) Urine frequency (Chronic) Constipation (Chronic) Dyspnea on exertion (Chronic) Spinal stenosis (Chronic) Neuropathy (Chronic) Glaucoma (Chronic) Prostatitis (Chronic) Urinary incontinence (Chronic) Degenerative joint disease (Chronic) Bilateral feet Hydrocephalus, unspecified (Chronic) CTS (carpal tunnel syndrome) (Chronic) Eczema (Chronic) Polyneuropathy (Chronic) Insomnia (Chronic) Depression (Chronic) Surgical history: History of bilateral carpal tunnel release (Chronic ~2005) 2005 and 2006 History of coronary artery bypass graft x 2 (Chronic ~1997) History of foot surgery (Chronic ~1985) Left History of hand surgery (Chronic ~2016) Right hand lanvary History of heart artery stent (Chronic ~11/2013) Three heart stents placed History of knee surgery (Chronic ~1984) Bilateral; 1983 and 1984 History of pacemaker (Chronic ~11/2008) Rewalon model #ZEDR-01, serial #[id number] History of surgery (Chronic ~06/2013) Right ulnar nerve S/P surgery on nasal septum (Chronic ~1977) Deviated septum Pertinent family history: Father , Onset Age: 68 Heart disease Mother , Onset Age: 81 Alzheimer disease GI malignancy Heart disease Grandfather Paternal Diabetes Paternal Brother , Onset Age: 59 Heart disease Myocardial infarction Social history: marital status: smoking status: Former smoker alcohol intake frequency: 0-2 drinks per day Medications and Allergies Home Medications Medication Instructions Recorded Confirmed Type Aspirin [Ángel Chewable Aspirin] 81 mg PO DAILY 11/13/14 12/27/18 History Clopidogrel [Plavix] 75 mg PO DAILY 11/13/14 12/27/18 History Omeprazole [PriLOSEC] 20 mg PO ACB 11/13/14 12/26/18 History Lacto.acidophilus-Bif.animalis 1 cap PO QDAY 01/29/17 12/27/18 History atorvastatin 40 mg tablet 40 mg PO QDAY 01/29/17 12/27/18 History duloxetine 60 mg capsule,delayed 60 mg PO QDAY 01/29/17 12/27/18 History release memantine 10 mg tablet 10 mg PO BID 01/29/17 12/27/18 History multivitamin 1 tab PO QDAY 01/29/17 12/27/18 History budesonide 3 mg 9 mg PO QAM 07/25/18 12/27/18 History capsule,delayed,extended release calcium carbonate 500 mg calcium 500 mg PO QDAY tab 07/25/18 12/27/18 History (1,250 mg) tablet colestipol 1 gram tablet 3 g PO BID tab 07/25/18 12/27/18 History nitroglycerin 0.4 mg sublingual 0.4 mg SUBLINGUAL Q5-15M PRN 07/25/18 12/26/18 History tablet psyllium husk 3.4 gram/5.4 gram 1 tbsp PO QDAY 07/25/18 12/27/18 History oral powder tamsulosin 0.4 mg capsule 0.4 mg PO QDAY 08/21/18 12/26/18 History isosorbide mononitrate 30 mg 30 mg PO DAILY tab 08/26/18 12/27/18 History tablet,extended release 24 hr solifenacin 10 mg tablet 10 mg PO QDAY #30 tab 11/21/18 12/26/18 Rx spironolactone 25 mg tablet 25 mg PO QDAY #90 tab 12/04/18 12/27/18 Rx torsemide 20 mg tablet 60 mg PO QDAY #300 tab 12/04/18 12/27/18 Rx Losartan Potassium 50 mg PO DAILY 12/27/18 12/27/18 History predniSONE [Prednisone] 5 mg PO QAMCC 12/27/18 12/27/18 History Allergies Allergy/AdvReac Type Severity Reaction Status Date / Time niacin Allergy Unknown Unknown Verified 11/21/18 13:22 [From Niaspan Extended-Release] Exam - Vital Signs Vital signs: Temp Pulse Resp BP Pulse Ox 36.4 C 59 L 15 112/65 100 12/27/18 04:03 12/27/18 04:03 12/27/18 04:03 12/27/18 04:03 12/27/18 04:03 - General Appearance General appearance: chronically ill, fatigue EENT: ATNC, PERRL, hearing intact, vision intact Neck: no JVD, no thyromegaly, no carotid bruit Respiratory: rales Cardiology: no murmurs, edema (Trace edema and venous stasis changes), normal S1, normal S2 Gastrointestinal: normoactive bowel sounds, no tenderness, no guarding Neurologic: no focal deficit, alert and oriented x3 (Knew her was in a hospital but though he was in [facility], Knew [place], name, [employer]), confused, CN 3-12 intact Musculoskeletal: no erythema, erythema, no clubbing Psychiatric: depressed Results - Lab Results 12/27/18 04:05 12/27/18 04:05 Most recent lab results Calcium 9.0 mg/dl (8.6-10.4) 12/27/18 04:05 Phosphorus 3.5 mg/dL (2.7-4.5) 12/27/18 04:05 Magnesium 2.8 mg/dL (1.6-2.5) H 12/27/18 04:05 Assessment and Plan (1) Acute on chronic renal failure 1. Stop diuretics 2. Hydrate with NS for 24-48 hours 3. Repeat echo does not reveal L:VEF <45% more like diastolic dysfuntion 4. Anticipate continued improvement in GFR 5. Doubt improved GFR will make any difference in his dementia or poor performance status - consider placement Status: Acute Priority: High Qualifiers: Acute renal failure type: with other specified pathological lesion Chronic kidney disease stage: stage 4 (severe) Qualified Code(s): N17.8 - Other acute kidney failure; N18.4 - Chronic kidney disease, stage 4 (severe) (2) Dementia 1. Continue namenda 2. Treat diastolic dysfunction 3. Evaluate for placement Status: Chronic Priority: High Qualifiers: Dementia type: vascular dementia Dementia behavioral disturbance: with behavioral disturbance Qualified Code(s): F01.51 - Vascular dementia with behavioral disturbance (3) Atherosclerotic BISI (renal artery stenosis), bilateral 1. Follow with Dr Gilbert 2. Has been evaluated in past by Vascular surgery who did NOT recommend revascularization 3. This and hypertensive nephrosclerosis is the likely cause of CKD, lack of proteinuria argues against diabetic renal disease 4. Has unilateral renal atrophy. Priority: Medium Comment: No indication for revascularization as of mid 2018 (4) Paroxysmal atrial fibrillation 1. Diastolic dysfunction is worsened by loss of atria kick and over diuresis 2. Avoid tachycardia Status: Chronic Priority: Medium (5) Essential (primary) hypertension 1. Use diltiazem or beta-wendy to avoid tachycardia 2. Avoid ACEi, ARB, and spironolactone due to bilateral BISI 3. Nitrates and amlodipine as long as heart rate stay in the 70's 4. No diuretics for now Status: Chronic
[2018-12-27] MEDS: INSULIN LISPRO 1 UNIT/0.01 ML UNIT SQ SCH ×4 (08:16→22:06)
[2018-12-27] MEDS ORDERED: Solifenacin Succinate [Vesicare] 10 mg Tab PO SCH (09:00)
[2018-12-27] MEDS ORDERED: TAMSULOSIN 0.4 MG CAPSULE PO SCH (09:00)
[2018-12-27] MEDS ORDERED: PSYLLIUM HUSK 6 GM PACKET PO SCH (09:00)
[2018-12-27] MEDS ORDERED: DULoxetine 30 MG CAPSULE PO SCH (09:00)
[2018-12-27] MEDS ORDERED: MULTIVIT,THER IRON,CA,FA & MIN 1 TABLET PO SCH (09:00)
[2018-12-27] MEDS ORDERED: HEPARIN 5,000 UNIT/ML VIAL SQ SCH (09:00)
[2018-12-27] MEDS ORDERED: MEMANTINE 10 MG TABLET PO SCH (09:00)
[2018-12-27 10:48] LABS: Appearance,Urine CLEAR; Bacteria,Urine 0 /hpf (0); Bilirubin,Urine NEG (NEG); Color,Urine YELLOW; Culture Indicated,Urine NO; Glucose,Urine (UA) 50 mg/dL (NEG); Ketones,Urine NEG (NEG); Leukocyte Esterase,Urine NEG /uL (NEG); Mucus,Urine FEW /hpf (0); Nitrate,Urine NEG (NEG); Protein,Urine NEG (NEG); Specific Gravity,Urine 1.014 (1.000-1.035); Urine Blood NEG mg/dL (<0.03); Urine RBC 3 /hpf (0-1); Urine Squamous Epithelial Cell 1 /hpf (0-4); Urine WBC 0 /hpf (0-4); Urobilinogen,Urine NEG (NEG)
--- NOTE | 2018-12-27 12:57 | Internal Med Progress Note ---
Medical - PN: Subj Patient information: Note initiated : 12/27/18 at 12:53 pm Service Date, if different from initiated Date: [] Patient: Vini Garrett a 78 y/o M admitted on 12/26/18 for Possible UTI. Chief Complaint: Follow-up acute renal failure on CKD Interval history: 12/26 Mr. Garrett is a 78 year old M with a history of hypertension, diet controlled diabetes mellitus, CAD with ischemic cardiomyopathy, atrial fibrillation and CKD stage IV in the setting of Type 2 diabetes. History is obtained in speaking w ith the patient, which is somewhat limited due to cognitive impairment, as well as reviewing old records and speaking with the provider in the emergency department. Patient 78 as noted, has a history of dementia who was diagnosed in 2016, which appeared to worsen in 2018. He has worsened in the last few weeks, and his PCP had him sent to the emergency room for further evaluation to look for infection or other causes of worsening mentation. When I speak with the patient and ask him why he was here, he states his and brought him here and he was complaining that he was unable to swallow. This started yesterday and that food did not "want to go down" (I note he does see GI for a Schatzki's ring and has an upcoming appointment). When specifically asking about renal function, he notes that he continues to have good urine output, does not seem to have changed recently. His medications are set out in a pillbox and is been taking all of his prescribed meds, his helps to oversee his medications. He notes that his memory could be doing better and that he notes that he is forgetting things. Is not left items running or the stove turned on however. Otherwise, he notes no edema (appears he was having edema and rales on exam when seen by nephrology earlier this month, which point torsemide was increased and spironolactone was added to his regimen). He does not get short of breath when lying supine. He does have some shortness of breath however today, without cough or sputum production. He denies any chest pain or tightness. No abdominal pain, no nausea vomiting or diarrhea. He is noticed no focal weaknesses. He does bruise easily, which is chronic. Said no fevers or chills, no headache, no vision changes, no sore throat, no rhinorrhea. Evaluation in the ED was notable for BUN of 108 and a creatinine of 3.8. On December 04 his creatinine was 2.6, on September 24 it was 1.8. Patient is being hospitalized for acute renal failure. 12/27 Patient without complaints today. Creatinine has decreased to 3.3 with fluids overnight. No evidence of volume overload. Has been seen by nephrology. Echocardiogram is pending. Maintaining good urine output. - Constitutional Vitals: Vital Signs Temp Pulse Resp BP Pulse Ox 98.0 F 59 L 17 136/64 100 12/27/18 12:16 12/27/18 12:16 12/27/18 12:16 12/27/18 12:16 12/27/18 12:16 Period Temp Pulse Resp BP Sys/Blanco Pulse Ox Last 24 Hr 97.2 F-98.0 F 59-96 15-18 112-149/64-71 75-100 Intake and Output 12/26/18 12/27/18 12/27/18 21:59 05:59 13:59 Intake Total 228 64 1059 Output Total 350 352 Balance -501 09 1564 Weight 180 lb 178 lb 9.6 oz Intake & Output: Intake & Output 12/26/18 12/27/18 12/27/18 21:59 05:59 13:59 Intake Total 766 35 7721 Output Total 350 352 Balance -861 13 9705 Weight 180 lb 178 lb 9.6 oz Intake: IV 250 1000 Sodium Chloride 0.9% 1,000 ml @ 1000 100 mls/hr IV .Q10H [place] Rx#: [id number] Sodium Chloride 0.9% 250 ml @ 250 Wide Open IV BOLUS ONE Rx#: [id number] Oral 50 720 Output: Void Amount 350 350 Straight Cath #2 350 # of times incontinent of urine 2 Other: Meal Breakfast Percent of Meal Consumed 100% Feeding Ability Independent Urine Appearance Clear Straight Cath #2 Clear Urine Color Pale Straight Cath #2 Bright Yellow Urine Odor Strong Straight Cath #2 Normal Medical - PN: Obj Da - Labs CBC & Chem 7: 12/27/18 04:05 12/27/18 04:05 Labs: Abnormal Lab Results 12/27/18 12/27/18 12/27/18 10:04 09:28 04:05 WBC RBC Hgb Hct RDW Gran % Lymph % (Auto) [place] % (Auto) Gran # Lymph # (Auto) [place] # (Auto) Potassium Chloride Anion Gap BUN 98 H Creatinine 3.3 H Glucose Hemoglobin A1c Uric Acid 11.6 H Magnesium 2.8 H Lactate Dehydrogenase 306 H NT-Pro-B Natriuret Pep 3477.0 H Urine Glucose (UA) 50 A Urine RBC 3 H 12/27/18 12/27/18 12/26/18 04:05 04:05 18:01 WBC RBC 3.82 L Hgb 10.9 L Hct 33.4 L RDW 18.9 H Gran % Lymph % (Auto) 9.6 L [place] % (Auto) 13.0 H Gran # 8.1 H Lymph # (Auto) 1.0 L [place] # (Auto) 1.4 H Potassium 5.5 H Chloride 90 L Anion Gap 17.0 H BUN 108 H* Creatinine 3.8 H Glucose 109 H Hemoglobin A1c 6.6 H Uric Acid Magnesium Lactate Dehydrogenase NT-Pro-B Natriuret Pep Urine Glucose (UA) Urine RBC 12/26/18 18:01 WBC 11.1 H RBC Hgb 12.6 L Hct 39.5 L RDW 19.2 H Gran % 90.6 H Lymph % (Auto) 3.5 L [place] % (Auto) Gran # 10.1 H Lymph # (Auto) 0.4 L [place] # (Auto) Potassium Chloride Anion Gap BUN Creatinine Glucose Hemoglobin A1c Uric Acid Magnesium Lactate Dehydrogenase NT-Pro-B Natriuret Pep Urine Glucose (UA) Urine RBC Microbiology 12/27/18 00:15 MRSA (PCR) - Final Nose Meds: Medications Acetaminophen (Tylenol) 650 mg PO Q6HP PRN; Protocol PRN Reason: Per Pain Protocol/Fever > 101 Hydrocodone Bitart/Acetaminophen ([place] 5/325mg) 1 tab PO Q4-6HP PRN; Protocol PRN Reason: Pain Dextrose (Dextrose 50%) 0 ml IV UD PRN PRN Reason: Hypoglycemia Diagnostic Test (Pha) (Accu-Chek) 1 each FS ACHS [facility] Last Admin: 12/27/18 11:40 Dose: 1 each Documented by: Duloxetine HCl (Cymbalta) 60 mg PO QDAY [facility] Last Admin: 12/27/18 09:42 Dose: 60 mg Documented by: Glucose (Insta-Glucose) 15 gm PO PRN PRN PRN Reason: Hypoglycemia Heparin Sodium (Porcine) (Heparin) 5,000 unit SQ Q12 [facility] Last Admin: 12/27/18 09:42 Dose: 5,000 unit Documented by: Sodium Chloride (Sodium Chloride 0.9%) 1,000 mls @ 100 mls/hr IV .Q10H [facility] Last Admin: 12/27/18 12:07 Dose: 100 mls/hr Documented by: Insulin Human Lispro (Humalog) 0 unit SQ ACHS [facility]; Protocol Last Admin: 12/27/18 12:11 Dose: Not Given Documented by: Iron Carb/Multivit/[place]/Folic Acid (Multivitamin W/Minerals) 1 tab PO DAILY [facility] Last Admin: 12/27/18 09:42 Dose: 1 tab Documented by: Isosorbide Mononitrate (Imdur) 30 mg PO QHS [facility] Memantine (Namenda) 10 mg PO BID [facility] Last Admin: 12/27/18 09:42 Dose: 10 mg Documented by: Omeprazole (Prilosec) 20 mg PO ACB [facility] Last Admin: 12/27/18 08:17 Dose: 20 mg Documented by: Ondansetron HCl (Zofran) 4 mg IV Q4HP PRN; Protocol PRN Reason: Nausea And Vomiting Solifenacin Succinate [Vesicare] 10 Mg Tab 1 dose PO QDAY [facility] Prednisone (Prednisone) 3 mg PO QAC [facility] Psyllium Hydrophilic Mucilloid (Metamucil) 6 gm PO DAILY [facility] Last Admin: 12/27/18 09:42 Dose: 6 gm Documented by: Sodium Chloride (Saline Flush) 10 ml IV Q8 [facility] Last Admin: 12/27/18 06:00 Dose: Not Given Documented by: Tamsulosin HCl (Flomax) 0.4 mg PO QDAY [facility] Last Admin: 12/27/18 09:42 Dose: 0.4 mg Documented by: Medical - PN: A/P - Time Spent With Patient Total time spent is greater than 50% in coordination of care (as documented) at patient's floor/unit and/or counseling patient: 25 - 35 minutes - Narrative A/P Narrative: 78-year-old male with chronic kidney disease, most recently described as stage IV with creatinine of 2.6 on November 27 presenting with worsening mentation in the setting of known dementia, found to have acute on chronic renal failure. Acute renal failure on chronic kidney disease. Improving. At presentation, creatinine was 3.8 increased from 2.6 in 4 weeks, BUN from the 60s to 108. On December 04, torsemide was increased to 60 mg daily and spironolactone was added at 25 mg. This may represent overdiuresis and prerenal renal failure. Urinary sediment was bland without evidence of casts to suggest ATN. No other new medications concerning for AIN. He does have underlying bilateral renal artery stenoses, however less likely this represents progression of atherosclerotic renal disease. Plan: Continue with gentle hydration Continue to hold diuretics Follow-up echocardiogram Follow renal function and electrolytes Strict intake and output Avoid nephrotoxins Hyperkalemia. Resolved. 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 Potassium is not critically elevated, reading of 5.5 at time of admission. Plan: Continue to monitor with hydration, holding spinal lactone. Can likely downgrade from telemetry later today. Ischemic cardiomyopathy with known coronary artery disease. Prior EF 45-50% mentioned in notes. Current echocardiogram is pending. Will need to monitor carefully for evidence of volume overload. Patient appeared to dry at admission, though had moderate crackles, right lower lung field greater than the left. He may have crackles from a primary pulmonary source and not from pulmonary edema. Plan: Continue medical management of CAD, except holding diuretics as above. Diet-controlled type 2 diabetes. Plan: Controlled carbohydrate/renal diet, low-dose sliding scale insulin. Hypertension, in part due to renal vascular causes. Blood pressure acceptable at this time Plan: Continue with nitrates. Loop diuretic and spironolactone being held due to renal failure. Overactive bladder, BPH. On Vesicare and tamsulosin at home. Plan: Continue Normochromic anemia. Mild. Appears stable. Suspect secondary to chronic kidney disease. Plan: Monitor. Prophylaxis: Subcutaneous heparin CODE STATUS: DO NOT RESUSCITATE D Medical - PN: Qual - VTE Deep Vein Thrombosis/Pulmonary Embolism Present on Admission: No
[2018-12-27] MEDS ORDERED: ISOSORBIDE MONONITRATE 30 MG TAB.XL.24H PO SCH (21:00)
[2018-12-27] MEDS: HEPARIN 5,000 UNIT/ML VIAL SQ SCH (22:06)
[2018-12-27] MEDS: ISOSORBIDE MONONITRATE 30 MG TAB.XL.24H PO SCH (22:07)
[2018-12-27] MEDS: MEMANTINE 10 MG TABLET PO SCH (22:07)
[2018-12-28] MEDS: 0.9 % SODIUM CHLORIDE 10 ML SYRINGE IV SCH ×3 (05:59→20:30)
[2018-12-28 07:24] LABS: ALT/SGPT 13 U/l (0-40); AST/SGOT 24 U/l (0-37); Albumin 3.3 gm/dL (3.2-5.2); Albumin/Globulin Ratio 1.2 (1.0-2.3); Alkaline Phosphatase 64 U/L (39-117); Bilirubin,Direct < 0.2 mg/dL (0.0-0.3); Bilirubin,Total 0.5 mg/dL (0.0-1.0); Blood Urea Nitrogen 66 mg/dl (8-23); Calcium 8.8 mg/dl (8.6-10.4); Carbon Dioxide 23 mmol/L (22-30); Chloride 105 mmol/L (96-108); Globulin 2.8 gm/dL (2.2-3.7); Glomerular Filtration Rate 31; Glucose 89 mg/dL (70-105); Lactate Dehydrogenase 310 U/L (94-250); Phosphorous 2.6 mg/dL (2.7-4.5); Triglycerides 97 mg/dl (<150); Uric Acid 8.8 mg/dL (2.5-8.0)
[2018-12-28] MEDS: INSULIN LISPRO 1 UNIT/0.01 ML UNIT SQ SCH ×4 (07:36→20:23)
[2018-12-28] MEDS: OMEPRAZOLE 20 MG CAPSULE PO SCH (07:36)
[2018-12-28] MEDS ORDERED: predniSONE 1 MG TABLET PO SCH (08:00)
[2018-12-28] MEDS: TAMSULOSIN 0.4 MG CAPSULE PO SCH (08:23)
[2018-12-28] MEDS: MEMANTINE 10 MG TABLET PO SCH ×2 (08:24→20:29)
[2018-12-28] MEDS: predniSONE 1 MG TABLET PO SCH (08:24)
[2018-12-28] MEDS: DULoxetine 30 MG CAPSULE PO SCH (08:24)
[2018-12-28] MEDS: MULTIVIT,THER IRON,CA,FA & MIN 1 TABLET PO SCH (08:24)
[2018-12-28] MEDS: HEPARIN 5,000 UNIT/ML VIAL SQ SCH ×2 (08:25→20:29)
[2018-12-28] MEDS: PSYLLIUM HUSK 6 GM PACKET PO SCH (08:25)
[2018-12-28] MEDS: Solifenacin Succinate [Vesicare] 10 mg Tab PO SCH (08:31)
[2018-12-28] MEDS: 0.9 % SODIUM CHLORIDE 1,000 ML IV SCH (08:35)
[2018-12-28] MEDS ORDERED: PNEUMOCOCCAL 23-VAL P-SAC VAC 0.5 ML SYRINGE IM ONE (10:00)
[2018-12-28] MEDS ORDERED: FLU VACC QS2019-20(6MOS UP)/PF 60 MCG/0.5 ML SYRINGE IM ONE (10:00)
--- NOTE | 2018-12-28 13:57 | Nephrology Progress Note ---
Subjective Patient information: Note initiated : 12/28/18 at 1:47 pm Service Date, if different from initiated Date: [] Patient: Vini Garrett 78 y/o M admitted on 12/26/18 for Possible UTI. Chief Complaint: [] Principal diagnosis: ARF on CKD 4 Interval history: With IV hydration, this patient's GFR has returned to normal. He is ambulatory with a walker but not steady, as there is no assistance at home as his is frail and undergoing chemotherapy. Will need PT/OT to achieve maximal safety and minimal care that may be provided by the If that fails, NHP GFR is back to normal Avoid or minimize diuretics as he lung exam is full of crackles but may be more related to chronic interstitial lung disease, fibrosis, or chronic changes of long standing CHF. At any rate attempts to diurese this patient led to only a rapid decline in GFR and no worsening improvement in his vascular disease His major problems stem from vascular disease now beyond the point of intervention (PVS, BISI, ASCAD and CVD with vascular dementia). Cardiac concepcion his prior Echo was chronic systolic CHF with EF 45%, most resent is chronic diastolic CHF => so I guess he has chronic systolic and diastolic CHF. Pertinent ROS: Feels good, eating and able to ambulate with walker AND supervision Additional PMFSH (Level 3 Only): Social Hx: Cannot be cared for safely at home at this time Objective - Vital Signs Vital signs: Vital Signs Temp Pulse Pulse Resp BP BP Pulse Ox 12/28/18 12:38 36.6 C 60 153/82 97 12/28/18 12:30 36.6 C 18 153/82 95 12/28/18 08:30 97 12/28/18 07:38 36.3 C 59 L 16 140/70 97 12/28/18 00:00 36.6 C 71 18 128/69 100 12/27/18 20:00 100 12/27/18 19:06 36.6 C 64 17 115/65 100 12/27/18 19:00 36.6 C 64 18 115/65 100 12/27/18 16:45 35.9 C L 16 114/69 99 Intake and Output 12/27/18 12/28/18 12/28/18 21:59 05:59 13:59 Intake Total 540 1000 1872 Output Total 476 302 202 Balance 64 318 1670 Intake: IV 1000 1392 Sodium Chloride 0.9% 1,000 ml @ 1000 1392 100 mls/hr IV .Q10H [facility] Rx#: [id number] Oral 540 480 Output: Urine Catheter Amount 150 Void Amount 475 150 200 # of times incontinent of urine 1 2 2 Other: Meal Dinner Breakfast Percent of Meal Consumed 100% 100% Feeding Ability Assist with Tray Set Up Urine Appearance Clear Clear Urine Color Bright Yellow Bright Yellow Urine Odor Normal Normal Stool Size Small Stool Color Brown Stool Consistency Formed # Voids 1 # Bowel Movements 1 Weight 82.917 kg Intake & Output: Intake & Output 12/27/18 12/28/18 12/28/18 21:59 05:59 13:59 Intake Total 540 1000 1872 Output Total 476 302 202 Balance 64 698 1670 Weight 82.917 kg Intake: IV 1000 1392 Sodium Chloride 0.9% 1,000 ml @ 1000 1392 100 mls/hr IV .Q10H [facility] Rx#: [id number] Oral 540 480 Output: Urine Catheter Amount 150 Void Amount 475 150 200 # of times incontinent of urine 1 2 2 Other: Meal Dinner Breakfast Percent of Meal Consumed 100% 100% Feeding Ability Assist with Tray Set Up Urine Appearance Clear Clear Urine Color Bright Yellow Bright Yellow Urine Odor Normal Normal Stool Size Small Stool Color Brown Stool Consistency Formed # Voids 1 # Bowel Movements 1 - General Appearance General appearance: well-developed, chronically ill, frail EENT: ATNC, PERRL, mucous membranes moist Neck: no JVD, no carotid bruit Respiratory: kyphosis, no scoliosis, rales (Dry velcro rales, present for months and refractory to diuresis) Cardiology: no murmurs, no rub, no gallops, regular rate, regular rhythm Gastrointestinal: normoactive bowel sounds, no guarding Integumentary: ecchymotic Neurologic: no focal deficit Musculoskeletal: deformities, no clubbing - Lab 12/27/18 04:05 12/28/18 03:54 Most recent lab results Calcium 8.8 mg/dl (8.6-10.4) 12/28/18 03:54 Phosphorus 2.6 mg/dL (2.7-4.5) L 12/28/18 03:54 Magnesium 2.4 mg/dL (1.6-2.5) 11/02/19 03:54 - Imaging Kidney/bladder ultrasound: report reviewed - Allied health notes Allied health notes reviewed: case management Assessment and Plan (1) Acute on chronic renal failure 1. ARF component resolved with IVF and cessation of diuretics 2. Trend Renal function 3. Discharge with appropriate placement level - ?SNF\ 4. Diuretic dosing to be determined at time of discharge, none for now Status: Acute Priority: High Qualifiers: Acute renal failure type: with other specified pathological lesion Chronic kidney disease stage: stage 4 (severe) Qualified Code(s): N17.8 - Other acute kidney failure; N18.4 - Chronic kidney disease, stage 4 (severe) (2) Dementia 1. This is as good as it gets. Back to my outpatient baseline. Decision making is poor, therefore need assistance at home. 2. Continue namenda and treatment for vascular disease Status: Chronic Priority: High Qualifiers: Dementia type: vascular dementia Dementia behavioral disturbance: with behavioral disturbance Qualified Code(s): F01.51 - Vascular dementia with behavioral disturbance (3) Atherosclerotic BISI (renal artery stenosis), bilateral 1. Bilateral and no intervention indicated per vascular surgeon. 2. Avoid RAASI as if truely critical BISI bilaterally, upsetting the renin/angio/prem axis will cause rapid decline in GFR. 3 Avoid decreased volume due to renin mediated HTN and diastolic CHF Priority: Medium Comment: No indication for revascularization as of mid 2019 (4) Paroxysmal atrial fibrillation 1. Avoid overdiuresis 2. Control HR Status: Chronic Priority: Medium (5) Essential (primary) hypertension 1. Add hydralazine 10 mg BID to Isosorbide mononitrate 30 mg q Day 2. Goal BP <130/80 and HR goal 60-90/min Status: Chronic - Narrative A/P Narrative: Acute medical problems resolved Needs SNF for saft, strethaning and maximum mobility Cannot be cared for at home by faily undergoing chemotherapy
--- NOTE | 2018-12-28 16:00 | Internal Med Progress Note ---
Medical - PN: Subj Patient information: Note initiated : 12/28/18 at 3:58 pm Service Date, if different from initiated Date: [] Patient: Vini Garrett a 78 y/o M admitted on 12/26/18 for Possible UTI. Chief Complaint: f/u acute renal failure Interval history: 12/26 Mr. Garrett is a 78 year old M with a history of hypertension, diet controlled diabetes mellitus, CAD with ischemic cardiomyopathy, atrial fibrillation and CKD stage IV in the setting of Type 2 diabetes. History is obtained in speaking with the patient, which is somewhat limited due to cognitive impairment, as well as reviewing old records and speaking with the provider in the emergency department. Patient 78 as noted, has a history of dementia who was diagnosed in 2016, which appeared to worsen in 2018. He has worsened in the last few weeks, and his PCP had him sent to the emergency room for further evaluation to look for infection or other causes of worsening mentation. When I speak with the patient and ask him why he was here, he states his and brought him here and he was complaining that he was unable to swallow. This started yesterday and that food did not "want to go down" (I note he does see GI for a Schatzki's ring and has an upcoming appointment). When specifically asking about renal function, he notes that he continues to have good urine output, does not seem to have changed recently. His medications are set out in a pillbox and is been taking all of his prescribed meds, his helps to oversee his medications. He notes that his memory could be doing better and that he notes that he is forgetting things. Is not left items running or the stove turned on however. Otherwise, he notes no edema (appears he was having edema and rales on exam when seen by nephrology earlier this month, which point torsemide was increased and spironolactone was added to his regimen). He does not get short of breath when lying supine. He does have some shortness of breath however today, without cough or sputum production. He denies any chest pain or tightness. No abdominal pain, no nausea vomiting or diarrhea. He is noticed no focal weaknesses. He does bruise easily, which is chronic. Said no fevers or chills, no headache, no vision changes, no sore throat, no rhinorrhea. Evaluation in the ED was notable for BUN of 108 and a creatinine of 3.8. On December 04 his creatinine was 2.6, on September 24 it was 1.8. Patient is being hospitalized for acute renal failure. 12/27 Patient without complaints today. Creatinine has decreased to 3.3 with fluids overnight. No evidence of volume overload. Has been seen by nephrology. Echocardiogram is pending. Maintaining good urine output. 12/28 Feels pretty well, wondering about going home. Remains unsteady on his feet however. Renal function is returned to about baseline. He is saline locked. - Constitutional Vitals: Vital Signs Temp Pulse Resp BP Pulse Ox 97.8 F 60 18 153/82 97 12/28/18 12:38 12/28/18 12:38 12/28/18 12:30 12/28/18 12:38 12/28/18 12:38 Period Temp Pulse Resp BP Sys/Blanco Pulse Ox Last 24 Hr 96.7 F-97.8 F 59-71 16-18 114-153/65-82 95-100 Intake and Output 12/28/18 12/28/18 12/28/18 05:59 13:59 21:59 Intake Total 1000 1872 480 Output Total 302 202 Balance 698 1670 480 Intake & Output: Intake & Output 12/28/18 12/28/18 12/28/18 05:59 13:59 21:59 Intake Total 1000 1872 480 Output Total 302 202 Balance 698 1670 480 Intake: IV 1000 1392 Sodium Chloride 0.9% 1,000 ml @ 1000 1392 100 mls/hr IV .Q10H [facility] Rx#: [id number] Oral 480 480 Output: Urine Catheter Amount 150 Void Amount 150 200 # of times incontinent of urine 2 2 Other: Meal Breakfast Percent of Meal Consumed 100% Urine Appearance Clear Urine Color Bright Yellow Urine Odor Normal Stool Size Small Stool Color Brown Stool Consistency Formed # Bowel Movements 1 Exam: General: No acute distress, very pleasant Chest: Lower mid mild rales bilaterally. No wheezes. Cardiovascular: Regular, no murmur appreciated Abdomen: Soft Skin: Ecchymoses of multiple duration on the extremities Musculoskeletal: RA deformity right hand Neuro: Alert, oriented to self, knows he is in the hospital but not sure which one, not quite sure why he is here. Unsteady on his feet. Medical - PN: Obj Da - Labs CBC & Chem 7: 12/27/18 04:05 12/28/18 03:54 Labs: Abnormal Lab Results 12/28/18 12/27/18 12/27/18 03:54 10:04 09:28 WBC RBC Hgb Hct RDW Gran % Lymph % (Auto) [place] % (Auto) Gran # Lymph # (Auto) [place] # (Auto) Potassium Chloride Anion Gap BUN 66 H Creatinine 2.0 H Glucose Hemoglobin A1c Uric Acid 8.8 H Phosphorus 2.6 L Magnesium Lactate Dehydrogenase 310 H NT-Pro-B Natriuret Pep 3477.0 H Urine Glucose (UA) 50 A Urine RBC 3 H 12/27/18 12/27/18 12/27/18 04:05 04:05 04:05 WBC RBC 3.82 L Hgb 10.9 L Hct 33.4 L RDW 18.9 H Gran % Lymph % (Auto) 9.6 L [place] % (Auto) 13.0 H Gran # 8.1 H Lymph # (Auto) 1.0 L [place] # (Auto) 1.4 H Potassium Chloride Anion Gap BUN 98 H Creatinine 3.3 H Glucose Hemoglobin A1c 6.6 H Uric Acid 11.6 H Phosphorus Magnesium 2.8 H Lactate Dehydrogenase 306 H NT-Pro-B Natriuret Pep Urine Glucose (UA) Urine RBC 12/26/18 12/26/18 18:01 18:01 WBC 11.1 H RBC Hgb 12.6 L Hct 39.5 L RDW 19.2 H Gran % 90.6 H Lymph % (Auto) 3.5 L [place] % (Auto) Gran # 10.1 H Lymph # (Auto) 0.4 L [place] # (Auto) Potassium 5.5 H Chloride 90 L Anion Gap 17.0 H BUN 108 H* Creatinine 3.8 H Glucose 109 H Hemoglobin A1c Uric Acid Phosphorus Magnesium Lactate Dehydrogenase NT-Pro-B Natriuret Pep Urine Glucose (UA) Urine RBC Meds: Medications Acetaminophen (Tylenol) 650 mg PO Q6HP PRN; Protocol PRN Reason: Per Pain Protocol/Fever > 101 Hydrocodone Bitart/Acetaminophen ([place] 5/325mg) 1 tab PO Q4-6HP PRN; Protocol PRN Reason: Pain Dextrose (Dextrose 50%) 0 ml IV UD PRN PRN Reason: Hypoglycemia Diagnostic Test (Pha) (Accu-Chek) 1 each FS ACHS [facility] Last Admin: 12/28/18 12:00 Dose: 1 each Documented by: Duloxetine HCl (Cymbalta) 60 mg PO DAILY [facility] Last Admin: 12/28/18 08:24 Dose: 60 mg Documented by: Glucose (Insta-Glucose) 15 gm PO PRN PRN PRN Reason: Hypoglycemia Heparin Sodium (Porcine) (Heparin) 5,000 unit SQ Q12 [facility] Last Admin: 12/28/18 08:25 Dose: 5,000 unit Documented by: Insulin Human Lispro (Humalog) 0 unit SQ [facility]; Protocol Last Admin: 12/28/18 12:37 Dose: Not Given Documented by: Iron Carb/Multivit/[place]/Folic Acid (Multivitamin W/Minerals) 1 tab PO DAILY [facility] Last Admin: 12/28/18 08:24 Dose: 1 tab Documented by: Isosorbide Mononitrate (Imdur) 30 mg PO QHS [facility] Last Admin: 12/27/18 22:07 Dose: 30 mg Documented by: Memantine (Namenda) 10 mg PO BID [facility] Last Admin: 12/28/18 08:24 Dose: 10 mg Documented by: Omeprazole (Prilosec) 20 mg PO ACB [facility] Last Admin: 12/28/18 07:36 Dose: 20 mg Documented by: Ondansetron HCl (Zofran) 4 mg IV Q4HP PRN; Protocol PRN Reason: Nausea And Vomiting Solifenacin Succinate [Vesicare] 10 Mg Tab 1 dose PO DAILY [facility] Last Admin: 12/28/18 08:31 Dose: 1 dose Documented by: Prednisone (Prednisone) 3 mg PO QAC [facility] Last Admin: 12/28/18 08:24 Dose: 3 mg Documented by: Psyllium Hydrophilic Mucilloid (Metamucil) 6 gm PO DAILY [facility] Last Admin: 12/28/18 08:25 Dose: 6 gm Documented by: Sodium Chloride (Saline Flush) 10 ml IV Q8 [facility] Last Admin: 12/28/18 12:30 Dose: 10 ml Documented by: Tamsulosin HCl (Flomax) 0.4 mg PO QDAY [facility] Last Admin: 12/28/18 08:23 Dose: 0.4 mg Documented by: Medical - PN: A/P - Time Spent With Patient Total time spent is greater than 50% in coordination of care (as documented) at patient's floor/unit and/or counseling patient: 25 - 35 minutes - Narrative A/P Narrative: 78-year-old male with chronic kidney disease, most recently described as stage IV with creatinine of 2.6 on November 27 presenting with worsening mentation in the setting of known dementia, found to have acute on chronic renal failure. Acute renal failure on chronic kidney disease. Improving/approaching baseline. At presentation, creatinine was 3.8 increased from 2.6 in 4 weeks, BUN from the 60s to 108. On December 04, torsemide was increased to 60 mg daily and spironolactone was added at 25 mg. Suspect this is volume depletion from diuretics. Urinary sediment was bland without evidence of casts to suggest ATN. No other new medications concerning for AIN. He does have underlying bilateral renal artery stenoses, however less likely this represents progression of atherosclerotic renal disease. Plan: Saline lock Continue to hold diuretics, decide on further diuretics at discharge or in follow-up in the office Follow-up echocardiogram, performed, not yet read Follow renal function and electrolytes Monitor intake and output Avoid nephrotoxins Dementia. Suspected vascular dementia with vascular disease and multiple arterial beds. He is weak, unsteady on his feet, cannot manage adequately at home without assistance. His is undergoing chemotherapy and is unable to provide current assistance. Plan: PT evaluation, may need short-term rehab prior to returning home. Hyperkalemia. Resolved. 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 Potassium is not critically elevated, reading of 5.5 at time of admission. Plan: Monitor. Spironolactone remains on hold. On med/surge status Ischemic cardiomyopathy with known coronary artery disease. Prior EF 45-50% mentioned in notes. Current echocardiogram is completed, read is pending. No evidence of volume overload with hydration. Patient appeared to dry at admission, though had moderate crackles, right lower lung field greater than the left. He may have crackles from a primary pulmonary source and not from pulmonary edema. Plan: Continue medical management of CAD, except holding diuretics as above. Diet-controlled type 2 diabetes. Plan: Controlled carbohydrate/renal diet, low-dose sliding scale insulin. Hypertension, in part due to renal vascular causes. Blood pressure acceptable at this time Plan: Continue with nitrates. Loop diuretic and spironolactone being held due to renal failure. Overactive bladder, BPH. On Vesicare and tamsulosin at home. Plan: Continue Normochromic anemia. Mild. Appears stable. Suspect secondary to chronic kidney disease. Plan: Monitor. Prophylaxis: Subcutaneous heparin CODE STATUS: DO NOT RESUSCITATE Medical - PN: Qual - VTE Deep Vein Thrombosis/Pulmonary Embolism Present on Admission: No
[2018-12-28] MEDS: ISOSORBIDE MONONITRATE 30 MG TAB.XL.24H PO SCH (20:29)
[2018-12-29 06:23] LABS: ALT/SGPT 14 U/l (0-40); AST/SGOT 20 U/l (0-37); Albumin 3.3 gm/dL (3.2-5.2); Albumin/Globulin Ratio 1.2 (1.0-2.3); Alkaline Phosphatase 64 U/L (39-117); Bilirubin,Direct < 0.2 mg/dL (0.0-0.3); Bilirubin,Total 0.4 mg/dL (0.0-1.0); Blood Urea Nitrogen 44 mg/dl (8-23); Calcium 8.8 mg/dl (8.6-10.4); Carbon Dioxide 23 mmol/L (22-30); Chloride 107 mmol/L (96-108); Globulin 2.7 gm/dL (2.2-3.7); Glomerular Filtration Rate 40; Glucose 100 mg/dL (70-105); Lactate Dehydrogenase 289 U/L (94-250); Phosphorous 1.9 mg/dL (2.7-4.5); Triglycerides 115 mg/dl (<150)
[2018-12-29] MEDS: OMEPRAZOLE 20 MG CAPSULE PO SCH (07:03)
[2018-12-29] MEDS: 0.9 % SODIUM CHLORIDE 10 ML SYRINGE IV SCH ×3 (07:04→20:48)
[2018-12-29] MEDS: INSULIN LISPRO 1 UNIT/0.01 ML UNIT SQ SCH ×4 (07:08→20:59)
--- NOTE | 2018-12-29 07:52 | Internal Med Progress Note ---
Medical - PN: Subj Patient information: Note initiated : 12/29/18 at 7:47 am Service Date, if different from initiated Date: [] Patient: Vini Garrett a 78 y/o M admitted on 12/26/18 for Possible UTI. Chief Complaint: f/u ARF Interval history: 12/26 Mr. Garrett is a 78 year old M with a history of hypertension, diet controlled diabetes mellitus, CAD with ischemic cardiomyopathy, atrial fibrillation and CKD stage IV in the setting of Type 2 diabetes. History is obtained in speaking with the patient, which is somewhat limited due to cognitive impairment, as well as reviewing old records and speaking with the provider in the emergency department. Patient 78 as noted, has a history of dementia who was diagnosed in 2016, which appeared to worsen in 2018. He has worsened in the last few weeks, and his PCP had him sent to the emergency room for further evaluation to look for infection or other causes of worsening mentation. When I speak with the patient and ask him why he was here, he states his and brought him here and he was complaining that he was unable to swallow. This started yesterday and that food did not "want to go down" (I note he does see GI for a Schatzki's ring and has an upcoming appointment). When specifically asking about renal function, he notes that he continues to have good urine output, does not seem to have changed recently. His medications are set out in a pillbox and is been taking all of his prescribed meds, his helps to oversee his medications. He notes that his memory could be doing better and that he notes that he is forgetting things. Is not left items running or the stove turned on however. Otherwise, he notes no edema (appears he was having edema and rales on exam when seen by nephrology earlier this month, which point torsemide was increased and spironolactone was added to his regimen). He does not get short of breath when lying supine. He does have some shortness of breath however today, without cough or sputum production. He denies any chest pain or tightness. No abdominal pain, no nausea vomiting or diarrhea. He is noticed no focal weaknesses. He does bruise easily, which is chronic. Said no fevers or chills, no headache, no vision changes, no sore throat, no rhinorrhea. Evaluation in the ED was notable for BUN of 108 and a creatinine of 3.8. On December 04 his creatinine was 2.6, on September 24 it was 1.8. Patient is being hospitalized for acute renal failure. 12/27 Patient without complaints today. Creatinine has decreased to 3.3 with fluids overnight. No evidence of volume overload. Has been seen by nephrology. Ec hocardiogram is pending. Maintaining good urine output. 12/28 Feels pretty well, wondering about going home. Remains unsteady on his feet however. Renal function is returned to about baseline. He is saline locked. 12/29 Remains quite weak, unsafe to ambulate on her own. Is a significant fall risk. Is been seen by physical therapy. Likely would benefit from skilled facility. He lives with his , who is undergoing chemotherapy and is not able to provide assistance to the patient at home. Patient is interested in skilled placement and further rehab. - Constitutional Vitals: Vital Signs Temp Pulse Resp BP Pulse Ox 97.6 F 60 20 147/78 97 12/29/18 07:42 12/29/18 03:35 12/29/18 07:42 12/29/18 07:42 12/29/18 07:42 Period Temp Pulse Resp BP Sys/Blanco Pulse Ox Last 24 Hr 97.5 F-98.8 F 60-71 16-24 129-153/76-84 95-97 Intake and Output 12/28/18 12/29/18 12/29/18 22:59 05:59 13:59 Intake Total Output Total 50 Balance -50 Weight Intake & Output: Intake & Output 12/28/18 12/29/18 12/29/18 22:59 05:59 13:59 Intake Total Output Total 50 Balance -50 Weight Intake: Oral Output: Void Amount 50 # of times incontinent of urine Other: Meal Percent of Meal Consumed Feeding Ability Urine Appearance Urine Color Pale Exam: General: Sitting edge of bed no acute distress Chest: Clear Cardiovascular: Regular, no edema Abdomen: Soft, nontender Neuro: Alert, oriented to self. Generally weak, unsteady on his feet Medical - PN: Obj Da - Labs CBC & Chem 7: 12/27/18 04:05 12/29/18 04:24 Labs: Abnormal Lab Results 12/29/18 12/28/18 12/27/18 04:24 03:54 10:04 WBC RBC Hgb Hct RDW Gran % Lymph % (Auto) [place] % (Auto) Gran # Lymph # (Auto) [place] # (Auto) Potassium Chloride Anion Gap BUN 44 H 66 H Creatinine 1.6 H 2.0 H Glucose Hemoglobin A1c Uric Acid 8.8 H Phosphorus 1.9 L 2.6 L Magnesium Lactate Dehydrogenase 289 H 310 H NT-Pro-B Natriuret Pep Urine Glucose (UA) 50 A Urine RBC 3 H 12/27/18 12/27/18 12/27/18 09:28 04:05 04:05 WBC RBC 3.82 L Hgb 10.9 L Hct 33.4 L RDW 18.9 H Gran % Lymph % (Auto) 9.6 L [place] % (Auto) 13.0 H Gran # 8.1 H Lymph # (Auto) 1.0 L [place] # (Auto) 1.4 H Potassium Chloride Anion Gap BUN 98 H Creatinine 3.3 H Glucose Hemoglobin A1c Uric Acid 11.6 H Phosphorus Magnesium 2.8 H Lactate Dehydrogenase 306 H NT-Pro-B Natriuret Pep 3477.0 H Urine Glucose (UA) Urine RBC 12/27/18 12/26/18 12/26/18 04:05 18:01 18:01 WBC 11.1 H RBC Hgb 12.6 L Hct 39.5 L RDW 19.2 H Gran % 90.6 H Lymph % (Auto) 3.5 L [place] % (Auto) Gran # 10.1 H Lymph # (Auto) 0.4 L [place] # (Auto) Potassium 5.5 H Chloride 90 L Anion Gap 17.0 H BUN 108 H* Creatinine 3.8 H Glucose 109 H Hemoglobin A1c 6.6 H Uric Acid Phosphorus Magnesium Lactate Dehydrogenase NT-Pro-B Natriuret Pep Urine Glucose (UA) Urine RBC Meds: Medications Acetaminophen (Tylenol) 650 mg PO Q6HP PRN; Protocol PRN Reason: Per Pain Protocol/Fever > 101 Hydrocodone Bitart/Acetaminophen ([place] 5/325mg) 1 tab PO Q4-6HP PRN; Protocol PRN Reason: Pain Last Admin: 12/29/18 07:04 Dose: 1 tab Documented by: Dextrose (Dextrose 50%) 0 ml IV UD PRN PRN Reason: Hypoglycemia Diagnostic Test (Pha) (Accu-Chek) 1 each FS ACHS [facility] Last Admin: 12/29/18 07:07 Dose: 1 each Documented by: Duloxetine HCl (Cymbalta) 60 mg PO DAILY [facility] Last Admin: 12/28/18 08:24 Dose: 60 mg Documented by: Glucose (Insta-Glucose) 15 gm PO PRN PRN PRN Reason: Hypoglycemia Heparin Sodium (Porcine) (Heparin) 5,000 unit SQ Q12 [facility] Last Admin: 12/28/18 20:29 Dose: 5,000 unit Documented by: Insulin Human Lispro (Humalog) 0 unit SQ ACHS [facility]; Protocol Last Admin: 12/29/18 07:08 Dose: Not Given Documented by: Iron Carb/Multivit/[place]/Folic Acid (Multivitamin W/Minerals) 1 tab PO DAILY [facility] Last Admin: 12/28/18 08:24 Dose: 1 tab Documented by: Isosorbide Mononitrate (Imdur) 30 mg PO QHS [facility] Last Admin: 12/28/18 20:29 Dose: 30 mg Documented by: Memantine (Namenda) 10 mg PO BID [facility] Last Admin: 12/28/18 20:29 Dose: 10 mg Documented by: Omeprazole (Prilosec) 20 mg PO ACB [facility] Last Admin: 12/29/18 07:03 Dose: 20 mg Documented by: Ondansetron HCl (Zofran) 4 mg IV Q4HP PRN; Protocol PRN Reason: Nausea And Vomiting Solifenacin Succinate [Vesicare] 10 Mg Tab 1 dose PO DAILY [facility] Last Admin: 12/28/18 08:31 Dose: 1 dose Documented by: Prednisone (Prednisone) 3 mg PO QAC [facility] Last Admin: 12/28/18 08:24 Dose: 3 mg Documented by: Psyllium Hydrophilic Mucilloid (Metamucil) 6 gm PO DAILY [facility] Last Admin: 12/28/18 08:25 Dose: 6 gm Documented by: Sodium Chloride (Saline Flush) 10 ml IV Q8 [facility] Last Admin: 12/29/18 07:04 Dose: 10 ml Documented by: Tamsulosin HCl (Flomax) 0.4 mg PO QDAY [facility] Last Admin: 12/28/18 08:23 Dose: 0.4 mg Documented by: Medical - PN: A/P - Time Spent With Patient Total time spent is greater than 50% in coordination of care (as documented) at patient's floor/unit and/or counseling patient: 25 - 35 minutes - Narrative A/P Narrative: 78-year-old male with chronic kidney disease, most recently described as stage IV with creatinine of 2.6 on November 27 presenting with worsening mentation in the setting of known dementia, found to have acute on chronic renal failure. Acute renal failure on chronic kidney disease. Resolved, approaching baseline. At presentation, creatinine was 3.8 increased from 2.6 in 4 weeks, BUN from the 60s to 108. On December 04, torsemide was increased to 60 mg daily and spironolactone was added at 25 mg. Suspect this is volume depletion from diuretics. Urinary sediment was bland without evidence of casts to suggest ATN. No other new medications concerning for AIN. He does have underlying bilateral renal artery stenoses, however less likely this represents progression of atherosclerotic renal disease. Plan: Saline locked Continue to hold diuretics, decide on further diuretics at discharge or in follow-up in the office with nephrology. Discussed with Dr. Holly. Follow-up echocardiogram, performed, not yet read Avoid nephrotoxins Dementia. Suspected vascular dementia with vascular disease and multiple arteri al beds. He is weak, unsteady on his feet, cannot manage adequately at home without assistance. His is undergoing chemotherapy and is unable to provide current assistance. PT evaluation confirms that he would benefit from skilled placement. Patient is interested in pursuing same. Plan: Continue physical therapy, case management referral. Hyperkalemia. Resolved. 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 Potassium was not critically elevated, reading of 5.5 at time of admission. Plan: Monitor. Spironolactone remains on hold. On med/surg status Ischemic cardiomyopathy with known coronary artery disease. Prior EF 45-50% mentioned in notes. Current echocardiogram is completed, read is pending. No evidence of volume overload with hydration. Patient appeared to dry at admission, though had moderate crackles, right lower lung field greater than the left. He may have crackles from a primary pulmonary source and not from pulmonary edema. Plan: Continue medical management of CAD, except holding diuretics as above. Diet-controlled type 2 diabetes. Plan: Controlled carbohydrate/renal diet, low-dose sliding scale insulin. Hypertension, in part due to renal vascular causes. Blood pressure acceptable at this time Plan: Continue with nitrates. Loop diuretic and spironolactone being held due to renal failure. Overactive bladder, BPH. On Vesicare and tamsulosin at home. Plan: Continue Normochromic anemia. Mild. Appears stable. Suspect secondary to chronic kidney disease. Plan: Monitor. Prophylaxis: Subcutaneous heparin CODE STATUS: DO NOT RESUSCITATE Medical - PN: Qual - VTE Deep Vein Thrombosis/Pulmonary Embolism Present on Admission: No
[2018-12-29] MEDS: predniSONE 1 MG TABLET PO SCH (08:11)
[2018-12-29] MEDS: DULoxetine 30 MG CAPSULE PO SCH (08:11)
[2018-12-29] MEDS: TAMSULOSIN 0.4 MG CAPSULE PO SCH (08:11)
[2018-12-29] MEDS: MULTIVIT,THER IRON,CA,FA & MIN 1 TABLET PO SCH (08:11)
[2018-12-29] MEDS: MEMANTINE 10 MG TABLET PO SCH ×2 (08:12→20:46)
[2018-12-29] MEDS: Solifenacin Succinate [Vesicare] 10 mg Tab PO SCH (08:12)
[2018-12-29] MEDS: PSYLLIUM HUSK 6 GM PACKET PO SCH (08:12)
[2018-12-29] MEDS: HEPARIN 5,000 UNIT/ML VIAL SQ SCH ×2 (08:12→20:47)
--- NOTE | 2018-12-29 13:25 | Internal Med Progress Note ---
Medical - PN: Subj Patient information: Note initiated : 12/29/18 at 1:19 pm Service Date, if different from initiated Date: [] Patient: Vini Garrett a 78 y/o M admitted on 12/26/18 for Possible UTI. Chief Complaint: [] Interval history: 12/26 Mr. Garrett is a 78 year old M with a history of hypertension, diet controlled diabetes mellitus, CAD with ischemic cardiomyopathy, atrial fibrillation and CKD stage IV in the setting of Type 2 diabetes. History is obtained in speaking with the patient, which is somewhat limited due to cognitive impairment, as well as reviewing old records and speaking with the provider in the emergency department. Patient 78 as noted, has a history of dementia who was diagnosed in 2016, which appeared to worsen in 2018. He has worsened in the last few weeks, and his PCP had him sent to the emergency room for further evaluation to look for infection or other causes of worsening mentation. When I speak with the patient and ask him why he was here, he states his and brought him here and he was complaining that he was unable to swallow. This started yesterday and that food did not "want to go down" (I note he does see GI for a Schatzki's ring and has an upcoming appointment). When specifically asking about renal function, he notes that he continues to have good urine output, does not seem to have changed recently. His medications are set out in a pillbox and is been taking all of his prescribed meds, his helps to oversee his medications. He notes that his memory could be doing better and that he notes that he is forgetting things. Is not left items running or the stove turned on however. Otherwise, he notes no edema (appears he was having edema and rales on exam when seen by nephrology earlier this month, which point torsemide was increased and spironolactone was added to his regimen). He does not get short of breath when lying supine. He does have some shortness of breath however today, without cough or sputum production. He denies any chest pain or tightness. No abdominal pain, no nausea vomiting or diarrhea. He is noticed no focal w eaknesses. He does bruise easily, which is chronic. Said no fevers or chills, no headache, no vision changes, no sore throat, no rhinorrhea. Evaluation in the ED was notable for BUN of 108 and a creatinine of 3.8. On December 04 his creatinine was 2.6, on September 24 it was 1.8. Patient is being hosp italized for acute renal failure. 12/27 Patient without complaints today. Creatinine has decreased to 3.3 with fluids overnight. No evidence of volume overload. Has been seen by nephrology. Echocardiogram is pending. Maintaining good urine output. 12/28 Feels pretty well, wondering about going home. Remains unsteady on his feet however. Renal function is returned to about baseline. He is saline locked. 3 Remains quite weak, unsafe to ambulate on her own. Is a significant fall risk. Is been seen by physical therapy. Likely would benefit from skilled facility. He lives with his , who is undergoing chemotherapy and is not able to provide assistance to the patient at home. Patient is interested in skilled placement and further rehab. - Constitutional Vitals: Vital Signs Temp Pulse Resp BP Pulse Ox 98 F 60 18 102/59 98 12/29/18 12:43 12/29/18 12:43 12/29/18 12:43 12/29/18 12:43 12/29/18 12:43 Period Temp Pulse Resp BP Sys/Blanco Pulse Ox Last 24 Hr 97.5 F-98.8 F 60-71 16-24 102-151/59-84 95-98 Intake and Output 12/28/18 12/29/18 12/29/18 22:59 05:59 13:59 Intake Total 360 Output Total 51 Balance 309 Weight Intake & Output: Intake & Output 12/28/18 12/29/18 12/29/18 22:59 05:59 13:59 Intake Total 360 Output Total 51 Balance 309 Weight Intake: Oral 360 Output: Void Amount 50 # of times incontinent of urine 1 Other: Meal Breakfast Percent of Meal Consumed 100% Feeding Ability Independent Urine Appearance Urine Color Pale Exam: General: Alert, Awake, No acute Distress Eyes/N/T: EOMI, Head/Neck: neck supple, CV: RRR, No murmurs, Pulm: Clear b/l, no wheezing/rhonchi/rales Abd: soft, nontender, +BS x4 Ext: no clubbing/cyanosis/edema Neuro: Alert, no focal deficits, moves all extremities, Skin: warm/dry Medical - PN: Obj Da - Labs CBC & Chem 7: 12/27/18 04:05 12/29/18 04:24 Labs: Abnormal Lab Results 12/29/18 12/28/18 12/27/18 04:24 03:54 10:04 WBC RBC Hgb Hct RDW Gran % Lymph % (Auto) [place] % (Auto) Gran # Lymph # (Auto) [place] # (Auto) Potassium Chloride Anion Gap BUN 44 H 66 H Creatinine 1.6 H 2.0 H Glucose Hemoglobin A1c Uric Acid 8.8 H Phosphorus 1.9 L 2.6 L Magnesium Lactate Dehydrogenase 289 H 310 H NT-Pro-B Natriuret Pep Urine Glucose (UA) 50 A Urine RBC 3 H 12/27/18 12/27/18 12/27/18 09:28 04:05 04:05 WBC RBC 3.82 L Hgb 10.9 L Hct 33.4 L RDW 18.9 H Gran % Lymph % (Auto) 9.6 L [place] % (Auto) 13.0 H Gran # 8.1 H Lymph # (Auto) 1.0 L [place] # (Auto) 1.4 H Potassium Chloride Anion Gap BUN 98 H Creatinine 3.3 H Glucose Hemoglobin A1c Uric Acid 11.6 H Phosphorus Magnesium 2.8 H Lactate Dehydrogenase 306 H NT-Pro-B Natriuret Pep 3477.0 H Urine Glucose (UA) Urine RBC 12/27/18 12/26/18 12/26/18 04:05 18:01 18:01 WBC 11.1 H RBC Hgb 12.6 L Hct 39.5 L RDW 19.2 H Gran % 90.6 H Lymph % (Auto) 3.5 L [place] % (Auto) Gran # 10.1 H Lymph # (Auto) 0.4 L [place] # (Auto) Potassium 5.5 H Chloride 90 L Anion Gap 17.0 H BUN 108 H* Creatinine 3.8 H Glucose 109 H Hemoglobin A1c 6.6 H Uric Acid Phosphorus Magnesium Lactate Dehydrogenase NT-Pro-B Natriuret Pep Urine Glucose (UA) Urine RBC Meds: Medications Acetaminophen (Tylenol) 650 mg PO Q6HP PRN; Protocol PRN Reason: Per Pain Protocol/Fever > 101 Hydrocodone Bitart/Acetaminophen ([place] 5/325mg) 1 tab PO Q4-6HP PRN; Protocol PRN Reason: Pain Last Admin: 12/29/18 07:04 Dose: 1 tab Documented by: Dextrose (Dextrose 50%) 0 ml IV UD PRN PRN Reason: Hypoglycemia Diagnostic Test (Pha) (Accu-Chek) 1 each FS ACHS [facility] Last Admin: 12/29/18 11:36 Dose: 1 each Documented by: Duloxetine HCl (Cymbalta) 60 mg PO DAILY [facility] Last Admin: 12/29/18 08:11 Dose: 60 mg Documented by: Glucose (Insta-Glucose) 15 gm PO PRN PRN PRN Reason: Hypoglycemia Heparin Sodium (Porcine) (Heparin) 5,000 unit SQ Q12 [facility] Last Admin: 12/29/18 08:12 Dose: 5,000 unit Documented by: Insulin Human Lispro (Humalog) 0 unit SQ [facility]; Protocol Last Admin: 12/29/18 11:36 Dose: Not Given Documented by: Iron Carb/Multivit/Cytogeneticist/Folic Acid (Multivitamin W/Minerals) 1 tab PO DAILY [facility] Last Admin: 12/29/18 08:11 Dose: 1 tab Documented by: Isosorbide Mononitrate (Imdur) 30 mg PO QHS [facility] Last Admin: 12/28/18 20:29 Dose: 30 mg Documented by: Memantine (Namenda) 10 mg PO BID [facility] Last Admin: 12/29/18 08:12 Dose: 10 mg Documented by: Omeprazole (Prilosec) 20 mg PO ACB [facility] Last Admin: 12/29/18 07:03 Dose: 20 mg Documented by: Ondansetron HCl (Zofran) 4 mg IV Q4HP PRN; Protocol PRN Reason: Nausea And Vomiting Solifenacin Succinate [Vesicare] 10 Mg Tab 1 dose PO DAILY [facility] Last Admin: 12/29/18 08:12 Dose: 1 dose Documented by: Prednisone (Prednisone) 3 mg PO QAC [facility] Last Admin: 12/29/18 08:11 Dose: 3 mg Documented by: Psyllium Hydrophilic Mucilloid (Metamucil) 6 gm PO DAILY [facility] Last Admin: 12/29/18 08:12 Dose: 6 gm Documented by: Sodium Chloride (Saline Flush) 10 ml IV Q8 [facility] Last Admin: 12/29/18 07:04 Dose: 10 ml Documented by: Tamsulosin HCl (Flomax) 0.4 mg PO QDAY [facility] Last Admin: 12/29/18 08:11 Dose: 0.4 mg Documented by: Medical - PN: A/P - Time Spent With Patient Total time spent is greater than 50% in coordination of care (as documented) at patient's floor/unit and/or counseling patient: - Narrative A/P Narrative: A: *MAT on CKD : Resolved, approaching baseline. -On December 04, torsemide was increased to 60 mg daily and spironolactone was added at 25 mg. Suspect this is volume depletion from diuretics. -Urinary sediment was bland without evidence of casts to suggest ATN. No other new medications concerning for AIN. -He does have underlying bilateral renal artery stenoses, however less likely this represents progression of atherosclerotic renal disease. *Dementia: Suspected vascular dementia with vascular disease and multiple arterial beds. -He is weak, unsteady on his feet, cannot manage adequately at home without assistance. -His is undergoing chemotherapy and is unable to provide current assistance. -PT evaluation confirms that he would benefit from skilled placement. *Hyperkalemia: . Resolved. 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 *Ischemic CMP w/CAD: Prior EF 45-50% mentioned in notes, pt appeared to dry at admission -echo He may have crackles from a primary pulmonary source and not from pulmonary edema. *Diet-controlled DM II: *HTN: *Overactive bladder, BPH: On Vesicare and tamsulosin at home. *Normochromic anemia. Mild. Appears stable. Suspect secondary to chronic kidney disease. Plan: -Continue to hold diuretics, decide on further diuretics at discharge or in follow-up in the office with nephrology. Discussed with Dr. Holly. Follow-up echocardiogram, performed, not yet read Avoid nephrotoxins - Spironolactone remains on hold. -SSI -Continue with nitrates. Loop diuretic and spironolactone being held due to renal failure - -pt/ot -Prophylaxis: Subcutaneous heparin CODE STATUS: DO NOT RESUSCITATE Medical - PN: Qual - VTE Deep Vein Thrombosis/Pulmonary Embolism Present on Admission: No
--- NOTE | 2018-12-29 13:27 | Discharge Summary ---
Medical - DS: Prov Patient information: Note initiated : 12/29/18 at 1:25 pm Service Date, if different from initiated Date: [] Patient: Vini Garrett 78 y/o M admitted on 12/26/18 for Possible UTI. Chief Complaint: [] Date of admission: 12/26/18 23:45 Discharge date: 12/31/18 Primary care physician: Inderjit Veronica MD Consults: 12/26/18 Consult to Physician [CONS] Stat Comment: Consulting Provider: Orquidea Menjivar Reason For Exam: Physician to Consult 12/27/18 00:06 Consult to Physician [CONS] Routine Comment: Consulting Provider: Karan Holly Reason For Exam: Physician to Consult Medical - DS: Meds - Discharge Medications Active and Home Medications: Home Medications Aspirin [Ángel Chewable Aspirin] 81 mg PO DAILY 11/13/14 [History Confirmed 12/27/18 Last Taken Unknown] Clopidogrel [Plavix] 75 mg PO DAILY 11/13/14 [History Confirmed 12/27/18 Last Taken Unknown] Omeprazole [PriLOSEC] 20 mg PO ACB 11/13/14 [History Confirmed 12/26/18 Last T aken Unknown] Lacto.acidophilus-Bif.animalis 1 cap PO QDAY 01/29/17 [History Confirmed 12/27/18 Last Taken Unknown] atorvastatin 40 mg tablet 40 mg PO QDAY 01/29/17 [History Confirmed 12/27/18 Last Taken Unknown] duloxetine 60 mg capsule,delayed release 60 mg PO QDAY 01/29/17 [History Confirmed 12/27/18 Last Taken Unknown] memantine 10 mg tablet 10 mg PO BID 01/29/17 [History Confirmed 12/27/18 Last Taken Unknown] multivitamin 1 tab PO QDAY 01/29/17 [History Confirmed 12/27/18 Last Taken Unknown] budesonide 3 mg capsule,delayed,extended release 9 mg PO QAM 07/25/18 [History Confirmed 12/27/18 Last Taken Unknown] calcium carbonate 500 mg calcium (1,250 mg) tablet 500 mg PO QDAY tab 07/25/18 [History Confirmed 12/27/18 Last Taken Unknown] colestipol 1 gram tablet 3 g PO BID tab 07/25/18 [History Confirmed 12/27/18 Last Taken Unknown] nitroglycerin 0.4 mg sublingual tablet 0.4 mg SUBLINGUAL Q5-15M PRN 07/25/18 [History Confirmed 12/26/18 Last Taken Unknown] psyllium husk 3.4 gram/5.4 gram oral powder 1 tbsp PO QDAY 07/25/18 [History Confirmed 12/27/18 Last Taken Unknown] tamsulosin 0.4 mg capsule 0.4 mg PO QDAY 08/21/18 [History Confirmed 12/26/18 Last Taken Unknown] isosorbide mononitrate 30 mg tablet,extended release 24 hr 30 mg PO DAILY tab 08/26/18 [History Confirmed 12/27/18 Last Taken Unknown] solifenacin 10 mg tablet 10 mg PO QDAY #30 tab 11/21/18 [Rx Confirmed 12/26/18 Last Taken Unknown] spironolactone 25 mg tablet 25 mg PO QDAY #90 tab 12/04/18 [Rx Confirmed 12/27/18 Last Taken Unknown] torsemide 20 mg tablet 60 mg PO QDAY #300 tab 12/04/18 [Rx Confirmed 12/27/18 Last Taken Unknown] Losartan Potassium 50 mg PO DAILY 12/27/18 [History Confirmed 12/27/18 Last Taken Unknown] predniSONE [Prednisone] 5 mg PO QAC 12/27/18 [History Confirmed 12/27/18 Last Taken Unknown] Home Medications Aspirin [Ángel Chewable Aspirin] 81 mg PO DAILY 11/13/14 [History Confirmed 12/27/18 Last Taken Unknown] Clopidogrel [Plavix] 75 mg PO DAILY 11/13/14 [History Confirmed 12/27/18 Last Taken Unknown] Omeprazole [Prilosec] 20 mg PO ACB 11/13/14 [History Confirmed 12/26/18 Last Taken Unknown] Lacto.acidophilus-Bif.animalis 1 cap PO QDAY 01/29/17 [History Confirmed 12/27/18 Last Taken Unknown] atorvastatin 40 mg tablet 40 mg PO QDAY 01/29/17 [History Confirmed 12/27/18 Last Taken Unknown] duloxetine 60 mg capsule,delayed release 60 mg PO QDAY 01/29/17 [History Confirmed 12/27/18 Last Taken Unknown] memantine 10 mg tablet 10 mg PO BID 01/29/17 [History Confirmed 12/27/18 Last Taken Unknown] multivitamin 1 tab PO QDAY 01/29/17 [History Confirmed 12/27/18 Last Taken Unknown] budesonide 3 mg capsule,delayed,extended release 9 mg PO QAM 07/25/18 [History Confirmed 12/27/18 Last Taken Unknown] calcium carbonate 500 mg calcium (1,250 mg) tablet 500 mg PO QDAY tab 07/25/18 [History Confirmed 12/27/18 Last Taken Unknown] colestipol 1 gram tablet 3 g PO BID tab 07/25/18 [History Confirmed 12/27/18 Last Taken Unknown] nitroglycerin 0.4 mg sublingual tablet 0.4 mg SUBLINGUAL Q5-15M PRN 07/25/18 [History Confirmed 12/26/18 Last Taken Unknown] psyllium husk 3.4 gram/5.4 gram oral powder 1 tbsp PO QDAY 07/25/18 [History Confirmed 12/27/18 Last Taken Unknown] tamsulosin 0.4 mg capsule 0.4 mg PO QDAY 08/21/18 [History Confirmed 12/26/18 Last Taken Unknown] isosorbide mononitrate 30 mg tablet,extended release 24 hr 30 mg PO DAILY tab 08/26/18 [History Confirmed 12/27/18 Last Taken Unknown] solifenacin 10 mg tablet 10 mg PO QDAY #30 tab 11/21/18 [Rx Confirmed 12/26/18 Last Taken Unknown] predniSONE [Prednisone] 5 mg PO QAC 12/27/18 [History Confirmed 12/27/18 Last Taken Unknown] Medical - DS: Hosp Hospital Course: 12/26 Mr. Garrett is a 78 year old M with a history of hypertension, diet controlled diabetes mellitus, CAD with ischemic cardiomyopathy, atrial fibrillation and CKD stage IV in the setting of Type 2 diabetes. History is obtained in speaking with the patient, which is somewhat limited due to cognitive impairment, as well as reviewing old records and speaking with the provider in the emergency department. Patient 78 as noted, has a history of dementia who was diagnosed in 2016, which appeared to worsen in 2018. He has worsened in the last few weeks, and his PCP had him sent to the emergency room for further evaluation to look for infection or other causes of worsening mentation. When I speak with the patient and ask him why he was here, he states his and brought him here and he was complaining that he was unable to swallow. This started yesterday and that food did not "want to go down" (I note he does see GI for a Schatzki's ring and has an upcoming appointment). When specifically asking about renal function, he notes that he continues to have good urine output, does not seem to have changed recently. His medications are set out in a pillbox and is been taking all of his prescribed meds, his helps to oversee his medications. He notes that his memory could be doing better and that he notes that he is forgetting things. Is not left items running or the stove turned on however. Otherwise, he notes no edema (appears he was having edema and rales on exam when seen by nephrology earlier this month, which point torsemide was increased and spironolactone was added to his regimen). He does not get short of breath when lying supine. He does have some shortness of breath however today, without cough or sputum production. He denies any chest pain or tightness. No abdominal pain, no nausea vomiting or diarrhea. He is noticed no focal w eaknesses. He does bruise easily, which is chronic. Said no fevers or chills, no headache, no vision changes, no sore throat, no rhinorrhea. Evaluation in the ED was notable for BUN of 108 and a creatinine of 3.8. On December 04 his creatinine was 2.6, on September 24 it was 1.8. Patient is being hospitalized for acute renal failure. 12/27 Patient without complaints today. Creatinine has decreased to 3.3 with fluids overnight. No evidence of volume overload. Has been seen by nephrology. Echocardiogram is pending. Maintaining good urine output. 12/28 Feels pretty well, wondering about going home. Remains unsteady on his feet however. Renal function is returned to about baseline. He is saline locked. 12/29 Remains quite weak, unsafe to ambulate on her own. Is a significant fall risk. Is been seen by physical therapy. Likely would benefit from skilled facility. He lives with his , who is undergoing chemotherapy and is not able to provide assistance to the patient at home. Patient is interested in skilled placement and further rehab. 12/30 Slept well. Renal function continues to improve. Patient feeling better overall. Awaiting skilled placement. Patient states he takes prednisone daily for polymyalgia rheumatica. He states he takes aspirin but does not recognize Plavix. 12/31 Doing well. No new complaints or issues. Diuretics held upon discharge till seen by nephrology Discharge diagnosis: Acute renal failure dementia hyperkalemia Secondary discharge diagnosis: Ischemic cardiomyopathy diabetes hypertension anemia - Time Spent with Patient Total time spent providing and/or coordinating discharge services: Greater than 30 minutes Medical - DS: Exam - Constitutional Vitals: Vital Signs Temp Pulse Pulse Resp BP BP BP 12/29/18 12:43 98 F 60 18 102/59 12/29/18 07:42 97.6 F 20 147/78 12/29/18 03:35 97.8 F 60 20 147/76 12/28/18 23:04 97.9 F 60 16 150/84 12/28/18 19:25 98.8 F 71 24 H 129/78 12/28/18 16:42 97.5 F 60 18 151/80 12/28/18 16:00 97.5 F 60 18 151/80 Pulse Ox 12/29/18 12:43 98 12/29/18 07:42 97 12/29/18 03:35 97 12/28/18 23:04 12/28/18 19:25 97 12/28/18 16:42 95 12/28/18 16:00 95 Intake and Output 12/28/18 12/29/18 12/29/18 22:59 05:59 13:59 Intake Total 360 Output Total 51 Balance 309 Intake: Oral 360 Output: Void Amount 50 # of times incontinent of urine 1 Other: Meal Breakfast Percent of Meal Consumed 100% Feeding Ability Independent Urine Appearance Urine Color Pale Weight Medical - DS: Data Labs on day of discharge: Labs from last 24 hours 12/29/18 04:24 Sodium 141 Potassium 4.2 Chloride 107 Carbon Dioxide 23 Anion Gap 11.0 BUN 44 H Creatinine 1.6 H GFR Calculation 40 Glucose 100 Uric Acid 7.0 Calcium 8.8 Phosphorus 1.9 L Magnesium 2.0 Total Bilirubin 0.4 Direct Bilirubin < 0.2 GGT 11 AST 20 ALT 14 Alkaline Phosphatase 64 Lactate Dehydrogenase 289 H Total Protein 6.0 Albumin 3.3 Globulin 2.7 Albumin/Globulin Ratio 1.2 Triglycerides 115 Medical - DS: A/P - Patient/Caregiver Discharge Instructions Activity: as per physical therapy Diet: Consistent Carbohydrate - Follow up Plan Follow up with: Karan Holly MD [Physician] - Inderjit Veronica MD [Primary Care Provider] - Disposition: Xfer SNF Prognosis: Fair Rehab Potential: Fair I certify that the patient requires SNF services: Yes Overall status at discharge: patient is progressing back to baseline Medical - DS: Qual - VTE Deep Vein Thrombosis/Pulmonary Embolism Present on Admission: No
--- NOTE | 2018-12-29 15:07 | Nephrology Progress Note ---
Subjective Patient information: Note initiated : 12/29/18 at 3:01 pm Service Date, if different from initiated Date: [] Patient: Vini Garrett 78 y/o M admitted on 12/26/18 for Possible UTI. Chief Complaint: [] Principal diagnosis: ARF on CKD 4 Interval history: He has achieved maximal inhospital improvement. Cannot blame uremia on his confusion,falls and progressive weakness. Difficult situation but if he could safely mobilize and perform his ADLs, he could be cared for in the home setting, short rehab with SNF is reasonable. Back to his baseline GFR. While his pulmonary exam and proBNP look bad, the bilateral BISI hadcuffs effective treatment with diuretics or RAASI therapy due to ARF such as occurred this past month. Take care not to over-diurese. Pertinent ROS: Nothing new Additional PMFSH (Level 3 Only): None Objective - Vital Signs Vital signs: Vital Signs Temp Pulse Resp BP BP Pulse Ox 12/29/18 12:43 36.6 C 60 18 102/59 98 12/29/18 07:42 36.4 C 20 147/78 97 12/29/18 03:35 36.6 C 60 20 147/76 97 12/28/18 23:04 36.6 C 60 16 150/84 12/28/18 19:25 37.1 C 71 24 H 129/78 97 12/28/18 16:42 36.4 C 60 18 151/80 95 Intake and Output 12/29/18 12/29/18 12/29/18 05:59 13:59 21:59 Intake Total 600 Output Total 252 125 Balance 348 -125 Intake: Oral 600 Output: Void Amount 250 125 # of times incontinent of urine 2 Other: Meal Lunch Percent of Meal Consumed 100% Feeding Ability Independent Urine Appearance Urine Color Pale # Voids 0 Intake & Output: Intake & Output 12/29/18 12/29/18 12/29/18 05:59 13:59 21:59 Intake Total 600 Output Total 252 125 Balance 348 -125 Intake: Oral 600 Output: Void Amount 250 125 # of times incontinent of urine 2 Other: Meal Lunch Percent of Meal Consumed 100% Feeding Ability Independent Urine Appearance Urine Color Pale # Voids 0 - General Appearance General appearance: well-developed, well-nourished, chronically ill EENT: ATNC, PERRL, mucous membranes moist Neck: no JVD, no thyromegaly Respiratory: no kyphosis Cardiology: no rub, no gallops, no edema, regular rate, regular rhythm Integumentary: no rash (Venous stasis changes and ischemic ulceration of skin), ecchymotic Neurologic: no focal deficit, no asterixis, disoriented, gait normal (requires assistance and walker for safety) Musculoskeletal: deformities (kyphosis and leans forward to walk with poor balance) Psychiatric: mood/affect appropriate - Lab 12/27/18 04:05 12/29/18 04:24 Most recent lab results Calcium 8.8 mg/dl (8.6-10.4) 12/29/18 04:24 Phosphorus 1.9 mg/dL (2.7-4.5) L 12/29/18 04:24 Magnesium 2.0 mg/dL (1.6-2.5) 12/29/18 04:24 Selected Entries 10/17/18 13:41 11/21/18 13:25 12/04/18 09:40 Pulse Rate 75 84 65 Blood Pressure 146/74 129/70 133/72 Laboratory Tests 12/29/18 04:24 Sodium 141 Potassium 4.2 Chloride 107 Carbon Dioxide 23 Anion Gap 11.0 BUN 44 H Creatinine 1.6 H GFR Calculation 40 Glucose 100 Uric Acid 7.0 Calcium 8.8 Phosphorus 1.9 L Magnesium 2.0 Total Bilirubin 0.4 GGT 11 AST 20 ALT 14 Alkaline Phosphatase 64 Lactate Dehydrogenase 289 H Total Protein 6.0 Albumin 3.3 Globulin 2.7 Albumin/Globulin Ratio 1.2 - Imaging Kidney/bladder ultrasound: report reviewed Assessment and Plan (1) Acute on chronic renal failure 1. ARF component resolved with IVF and cessation of diuretics 2. Trend Renal function 3. Discharge with appropriate placement level - ?SNF\ 4. Diuretic dosing to be determined at time of discharge, none for now Status: Acute Priority: High Qualifiers: Acute renal failure type: with other specified pathological lesion Chronic kidney disease stage: stage 4 (severe) Qualified Code(s): N17.8 - Other acute kidney failure; N18.4 - Chronic kidney disease, stage 4 (severe) (2) Dementia 1. This is as good as it gets. Back to my outpatient baseline. Decision making is poor, therefore need assistance at home. 2. Continue namenda and treatment for vascular disease Status: Chronic Priority: High Qualifiers: Dementia type: vascular dementia Dementia behavioral disturbance: with behavioral disturbance Qualified Code(s): F01.51 - Vascular dementia with behavioral disturbance (3) Atherosclerotic BISI (renal artery stenosis), bilateral 1. Bilateral and no intervention indicated per vascular surgeon. 2. Avoid RAASI as if truely critical BISI bilaterally, upsetting the renin/angio/prem axis will cause rapid decline in GFR. 3 Avoid decreased volume due to renin mediated HTN and diastolic CHF Priority: Medium Comment: No indication for revascularization as of mid 2018 (4) Paroxysmal atrial fibrillation 1. Avoid overdiuresis 2. Control HR Status: Chronic Priority: Medium (5) Essential (primary) hypertension 1. Add hydralazine 10 mg BID to Isosorbide mononitrate 30 mg q Day 2. Goal BP <130/80 and HR goal 60-90/min Status: Chronic
[2018-12-29] MEDS: ISOSORBIDE MONONITRATE 30 MG TAB.XL.24H PO SCH (20:46)
[2018-12-30 06:53] LABS: Blood Urea Nitrogen 34 mg/dl (8-23); Calcium 8.9 mg/dl (8.6-10.4); Carbon Dioxide 25 mmol/L (22-30); Chloride 105 mmol/L (96-108); Glomerular Filtration Rate 44; Glucose 84 mg/dL (70-105)
--- NOTE | 2018-12-30 07:09 | Internal Med Progress Note ---
Medical - PN: Subj Patient information: Note initiated : 12/30/18 at 7:03 am Service Date, if different from initiated Date: [] Patient: Vini Garrett a 78 y/o M admitted on 12/26/18 for Possible UTI. Chief Complaint: [] Interval history: 12/26 Mr. Garrett is a 78 year old M with a history of hypertension, diet controlled diabetes mellitus, CAD with ischemic cardiomyopathy, atrial fibrillation and CKD stage IV in the setting of Type 2 diabetes. History is obtained in speaking with the patient, which is somewhat limited due to cognitive impairment, as well as reviewing old records and speaking with the provider in the emergency department. Patient 78 as noted, has a history of dementia who was diagnosed in 2016, which appeared to worsen in 2018. He has worsened in the last few weeks, and his PCP had him sent to the emergency room for further evaluation to look for infection or other causes of worsening mentation. When I speak with the patient and ask him why he was here, he states his and brought him here and he was complaining that he was unable to swallow. This started yesterday and that food did not "want to go down" (I note he does see GI for a Schatzki's ring and has an upcoming appointment). When specifically asking about renal function, he notes that he continues to have good urine output, does not seem to have changed recently. His medications are set out in a pillbox and is been taking all of his prescribed meds, his helps to oversee his medications. He notes that his memory could be doing better and that he notes that he is forgetting things. Is not left items running or the stove turned on however. Otherwise, he notes no edema (appears he was having edema and rales on exam when seen by nephrology earlier this month, which point torsemide was increased and spironolactone was added to his regimen). He does not get short of breath when lying supine. He does have some shortness of breath however today, without cough or sputum production. He denies any chest pain or tightness. No abdominal pain, no nausea vomiting or diarrhea. He is noticed no focal w eaknesses. He does bruise easily, which is chronic. Said no fevers or chills, no headache, no vision changes, no sore throat, no rhinorrhea. Evaluation in the ED was notable for BUN of 108 and a creatinine of 3.8. On December 04 his creatinine was 2.6, on September 24 it was 1.8. Patient is being hosp italized for acute renal failure. 12/27 Patient without complaints today. Creatinine has decreased to 3.3 with fluids overnight. No evidence of volume overload. Has been seen by nephrology. Echocardiogram is pending. Maintaining good urine output. 12/28 Feels pretty well, wondering about going home. Remains unsteady on his feet however. Renal function is returned to about baseline. He is saline locked. 12/29 Remains quite weak, unsafe to ambulate on her own. Is a significant fall risk. Is been seen by physical therapy. Likely would benefit from skilled facility. He lives with his , who is undergoing chemotherapy and is not able to provide assistance to the patient at home. Patient is interested in skilled placement and further rehab. 12/30 Slept well. Renal function continues to improve. Patient feeling better overall. Awaiting skilled placement. Patient states he takes prednisone daily for polymyalgia rheumatica. He states he takes aspirin but does not recognize Plavix. Review of Systems: denies headache/fever/chills/nausea/vomiting/chest or abdominal pain/cou gh/dyspnea/diarrhea. Otherwise see above. - Constitutional Vitals: Vital Signs Temp Pulse Resp BP Pulse Ox 98.0 F 60 16 128/50 96 12/30/18 04:37 12/30/18 04:37 12/30/18 04:37 12/30/18 04:37 12/29/18 23:23 Period Temp Pulse Resp BP Sys/Blanco Pulse Ox Last 24 Hr 97.4 F-98.3 F 58-64 16-20 102-147/50-81 90-98 Intake and Output 12/29/18 12/30/18 12/30/18 21:59 05:59 13:59 Intake Total 440 225 Output Total 326 1 Balance 114 224 Weight 86.954 kg Intake & Output: Intake & Output 12/29/18 12/30/18 12/30/18 21:59 05:59 13:59 Intake Total 440 225 Output Total 326 1 Balance 114 224 Weight 86.954 kg Intake: Oral 440 225 Output: Void Amount 325 # of times incontinent of urine 1 1 Other: Meal Dinner Percent of Meal Consumed 100% # Voids 0 Exam: General: Alert, Awake, No acute Distress Eyes/N/T: EOMI, Head/Neck: neck supple, CV: RRR, No murmurs, Pulm: Clear b/l, no wheezing/rhonchi/rales Abd: soft, nontender, +BS x4 Ext: no clubbing/cyanosis/edema Neuro: Alert, no focal deficits, moves all extremities, Skin: warm/dry Medical - PN: Obj Da - Labs CBC & Chem 7: 12/27/18 04:05 12/30/18 04:40 Labs: Abnormal Lab Results 12/30/18 12/29/18 12/28/18 04:40 04:24 03:54 BUN 34 H 44 H 66 H Creatinine 1.5 H 1.6 H 2.0 H Uric Acid 8.8 H Phosphorus 1.9 L 2.6 L Lactate Dehydrogenase 289 H 310 H NT-Pro-B Natriuret Pep Urine Glucose (UA) Urine RBC 12/27/18 12/27/18 10:04 09:28 BUN Creatinine Uric Acid Phosphorus Lactate Dehydrogenase NT-Pro-B Natriuret Pep 3477.0 H Urine Glucose (UA) 50 A Urine RBC 3 H Meds: Medications Acetaminophen (Tylenol) 650 mg PO Q6HP PRN; Protocol PRN Reason: Per Pain Protocol/Fever > 101 Hydrocodone Bitart/Acetaminophen (Sublette 5/325mg) 1 tab PO Q4-6HP PRN; Protocol PRN Reason: Pain Last Admin: 12/29/18 07:04 Dose: 1 tab Documented by: Dextrose (Dextrose 50%) 0 ml IV UD PRN PRN Reason: Hypoglycemia Diagnostic Test (Pha) (Accu-Chek) 1 each FS [facility] Last Admin: 12/29/18 20:50 Dose: 1 each Documented by: Duloxetine HCl (Cymbalta) 60 mg PO DAILY [facility] Last Admin: 12/29/18 08:11 Dose: 60 mg Documented by: Glucose (Insta-Glucose) 15 gm PO PRN PRN PRN Reason: Hypoglycemia Heparin Sodium (Porcine) (Heparin) 5,000 unit SQ Q12 [facility] Last Admin: 12/29/18 20:47 Dose: 5,000 unit Documented by: Insulin Human Lispro (Humalog) 0 unit SQ [facility]; Protocol Last Admin: 12/29/18 20:59 Dose: 1 unit Documented by: Iron Carb/Multivit/Medical Research Tech/Folic Acid (Multivitamin W/Minerals) 1 tab PO DAILY [facility] Last Admin: 12/29/18 08:11 Dose: 1 tab Documented by: Isosorbide Mononitrate (Imdur) 30 mg PO QHS [facility] Last Admin: 12/29/18 20:46 Dose: 30 mg Documented by: Memantine (Namenda) 10 mg PO BID [facility] Last Admin: 12/29/18 20:46 Dose: 10 mg Documented by: Omeprazole (Prilosec) 20 mg PO ACB [facility] Last Admin: 12/29/18 07:03 Dose: 20 mg Documented by: Ondansetron HCl (Zofran) 4 mg IV Q4HP PRN; Protocol PRN Reason: Nausea And Vomiting Solifenacin Succinate [Vesicare] 10 Mg Tab 1 dose PO DAILY [facility] Last Admin: 12/29/18 08:12 Dose: 1 dose Documented by: Pred[facility]one (Pred[facility]one) [facility] Last Admin: 12/29/18 08:11 Dose: 3 mg Documented by: Psyllium Hydrophilic Mucilloid (Metamucil) 6 gm PO DAILY [facility] Last Admin: 12/29/18 08:12 Dose: 6 gm Documented by: Sodium Chloride (Saline Flush) 10 ml IV Q8 [facility] Last Admin: 12/29/18 20:48 Dose: 10 ml Documented by: Tamsulosin HCl (Flomax) 0.4 mg PO QDAY [facility] Last Admin: 12/29/18 08:11 Dose: 0.4 mg Documented by: Medical - PN: A/P - Time Spent With Patient Total time spent is greater than 50% in coordination of care (as documented) at patient's floor/unit and/or counseling patient: - Narrative A/P Narrative: A: *MAT on CKD : Resolved, approaching baseline. -On December 04, torsemide was increased to 60 mg daily and spironolactone was added at 25 mg. Suspect this is volume depletion from diuretics. -Urinary sediment was bland without evidence of casts to suggest ATN. No other new medications concerning for AIN. -He does have underlying bilateral renal artery stenoses, however less likely this represents progression of atherosclerotic renal disease. *Dementia: Suspected vascular dementia with vascular disease and multiple arterial beds. -He is weak, unsteady on his feet, cannot manage adequately at home without assistance. -His is undergoing chemotherapy and is unable to provide current assistance. -PT evaluation confirms that he would benefit from skilled placement. *Hyperkalemia: Resolved. 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 *Ischemic CMP w/CAD, Right heart failure & diastolic dysfxn: Prior EF 45-50% mentioned in notes, pt appeared to dry at admission -echo EF 60%, grade III diastolic dysfxn, RV reduced systolic fxn, mod TR *Diet-controlled DM II: *HTN: *Overactive bladder, BPH: On Vesicare and tamsulosin at home. *Normochromic anemia. Mild. Appears stable. Suspect secondary to chronic kidney disease. *Polymyalgia rheumatica: Is on prednisone chronically Plan: -Continue to hold diuretics/ARB, decide on further diuretics at discharge per nephrology. Avoid nephrotoxins -Continue with nitrates. Loop diuretic/spironolactone/ARB being held due to renal failure -cont ASA -cont prednisone -SSI -pt/ot -CM for placement -Prophylaxis: Subcutaneous heparin/home ppi CODE STATUS: DO NOT RESUSCITATE Medical - PN: Qual - VTE Deep Vein Thrombosis/Pulmonary Embolism Present on Admission: No
[2018-12-30] MEDS: predniSONE 1 MG TABLET PO SCH (08:58)
[2018-12-30] MEDS: OMEPRAZOLE 20 MG CAPSULE PO SCH (08:58)
[2018-12-30] MEDS: INSULIN LISPRO 1 UNIT/0.01 ML UNIT SQ SCH ×4 (09:08→20:31)
[2018-12-30] MEDS: 0.9 % SODIUM CHLORIDE 10 ML SYRINGE IV SCH ×3 (09:09→21:43)
[2018-12-30] MEDS: TAMSULOSIN 0.4 MG CAPSULE PO SCH (11:06)
[2018-12-30] MEDS: MEMANTINE 10 MG TABLET PO SCH ×2 (11:07→20:31)
[2018-12-30] MEDS: MULTIVIT,THER IRON,CA,FA & MIN 1 TABLET PO SCH (11:07)
[2018-12-30] MEDS: DULoxetine 30 MG CAPSULE PO SCH (11:07)
[2018-12-30] MEDS: HEPARIN 5,000 UNIT/ML VIAL SQ SCH ×2 (11:08→20:31)
[2018-12-30] MEDS: Solifenacin Succinate [Vesicare] 10 mg Tab PO SCH (11:09)
[2018-12-30] MEDS: PSYLLIUM HUSK 6 GM PACKET PO SCH (11:09)
[2018-12-30] MEDS: ASPIRIN 81 MG TAB.CHEW PO SCH (18:27)
--- NOTE | 2018-12-30 19:04 | Nephrology Progress Note ---
Subjective Patient information: Note initiated : 12/30/18 at 7:01 pm Service Date, if different from initiated Date: [] Patient: Vini Garrett 78 y/o M admitted on 12/26/18 for Possible UTI. Chief Complaint: [] Principal diagnosis: ARF on CKD 4 Interval history: Back to baseline GFR Minimize or no diuretics as they do not improve pulmonary findings but do cause marked decrease in GFR Pertinent ROS: Most recent echo with Grade 3/3 diastolic dysfunction but well pLVEF Additional PMFSH (Level 3 Only): Chronic Diastolic congestive heart failure - Grade 3/3 Objective - Vital Signs Vital signs: Vital Signs Temp Pulse Pulse Resp BP Pulse Ox 12/30/18 15:34 37.0 C 74 16 112/65 12/30/18 12:00 35.6 C L 68 12 118/62 12/30/18 08:00 36.8 C 60 13 132/76 100 12/30/18 04:37 36.7 C 60 16 128/50 12/29/18 23:23 36.3 C 58 L 20 147/81 96 Intake and Output 12/30/18 12/30/18 12/30/18 05:59 13:59 21:59 Intake Total 225 500 Output Total 1 350 Balance 224 150 Intake: Oral 225 500 Output: Void Amount 350 # of times incontinent of urine 1 Other: Meal Dinner Percent of Meal Consumed 100% Urine Appearance Cloudy Cloudy Urine Color Dark Simin Dark Simin Intake & Output: Intake & Output 12/30/18 12/30/18 12/30/18 05:59 13:59 21:59 Intake Total 225 500 Output Total 1 350 Balance 224 150 Intake: Oral 225 500 Output: Void Amount 350 # of times incontinent of urine 1 Other: Meal Dinner Percent of Meal Consumed 100% Urine Appearance Cloudy Cloudy Urine Color Dark Simin Dark Simin - General Appearance General appearance: well-nourished, appears started age EENT: ATNC, PERRL Neck: no JVD, no carotid bruit, supple Respiratory: kyphosis Cardiology: no murmurs, no rub, no gallops, no edema, regular rate, regular rhythm, normal S1 Gastrointestinal: normoactive bowel sounds, no tenderness, no guarding Integumentary: no rash, warm and dry Neurologic: no focal deficit, no asterixis (Too unsteady of gait to go home with ) Psychiatric: mood/affect appropriate - Lab 12/27/18 04:05 12/30/18 04:40 Most recent lab results Calcium 8.9 mg/dl (8.6-10.4) 12/30/18 04:40 Phosphorus 1.9 mg/dL (2.7-4.5) L 12/29/18 04:24 Magnesium 2.0 mg/dL (1.6-2.5) 12/29/18 04:24 - Imaging Kidney/bladder ultrasound: report reviewed Assessment and Plan (1) Acute on chronic renal failure 1. ARF component resolved with IVF and cessation of diuretics 2. Trend Renal function 3. Discharge with appropriate placement level - ?SNF\ 4. Diuretic dosing to be determined at time of discharge, none for now Status: Acute Priority: High Qualifiers: Acute renal failure type: with other specified pathological lesion Chronic kidney disease stage: stage 4 (severe) Qualified Code(s): N17.8 - Other acute kidney failure; N18.4 - Chronic kidney disease, stage 4 (severe) (2) Dementia 1. This is as good as it gets. Back to my outpatient baseline. Decision making is poor, therefore need assistance at home. 2. Continue namenda and treatment for vascular disease Status: Chronic Priority: High Qualifiers: Dementia type: vascular dementia Dementia behavioral disturbance: with behavioral disturbance Qualified Code(s): F01.51 - Vascular dementia with behavioral disturbance (3) Atherosclerotic BISI (renal artery stenosis), bilateral 1. Bilateral and no intervention indicated per vascular surgeon. 2. Avoid RAASI as if truely critical BISI bilaterally, upsetting the renin/angio/prem axis will cause rapid decline in GFR. 3 Avoid decreased volume due to renin mediated HTN and diastolic CHF Priority: Medium Comment: No indication for revascularization as of mid 2019 (4) Paroxysmal atrial fibrillation 1. Avoid overdiuresis 2. Control HR Status: Chronic Priority: Medium (5) Essential (primary) hypertension 1. Add hydralazine 10 mg BID to Isosorbide mononitrate 30 mg q Day 2. Goal BP <130/80 and HR goal 60-90/min Status: Chronic - Narrative A/P Narrative: Acute medical problems resolved Needs SNF for safety, strethening and maximum mobility Cannot be cared for at home by frail undergoing chemotherapy Accepted at [facility]
[2018-12-30] MEDS: ISOSORBIDE MONONITRATE 30 MG TAB.XL.24H PO SCH (20:31)
[2018-12-31] MEDS: 0.9 % SODIUM CHLORIDE 10 ML SYRINGE IV SCH (05:22)
[2018-12-31] MEDS: HEPARIN 5,000 UNIT/ML VIAL SQ SCH (09:13)
[2018-12-31] MEDS: INSULIN LISPRO 1 UNIT/0.01 ML UNIT SQ SCH (09:13)
[2018-12-31] MEDS: PSYLLIUM HUSK 6 GM PACKET PO SCH (09:14)
[2018-12-31] MEDS: ASPIRIN 81 MG TAB.CHEW PO SCH (09:14)
[2018-12-31] MEDS: predniSONE 1 MG TABLET PO SCH (09:14)
[2018-12-31] MEDS: Solifenacin Succinate [Vesicare] 10 mg Tab PO SCH (09:14)
[2018-12-31] MEDS: TAMSULOSIN 0.4 MG CAPSULE PO SCH (09:15)
[2018-12-31] MEDS: MULTIVIT,THER IRON,CA,FA & MIN 1 TABLET PO SCH (09:15)
[2018-12-31] MEDS: DULoxetine 30 MG CAPSULE PO SCH (09:15)
[2018-12-31] MEDS: OMEPRAZOLE 20 MG CAPSULE PO SCH (09:15)
[2018-12-31] MEDS: MEMANTINE 10 MG TABLET PO SCH (09:15)
[2018-12-31] MEDS ORDERED: PNEUMOCOCCAL 23-VAL P-SAC VAC 0.5 ML SYRINGE IM ONE (09:30)
[2018-12-31] MEDS ORDERED: FLU VACC QS2019-20(6MOS UP)/PF 60 MCG/0.5 ML SYRINGE IM ONE (09:30)
== END 2018-12-31 10:21 | DRG 683 ==
LOC: ED 17:08 → ICU 23:43 → MEDSUR 12-28 12:39
PROVIDERS: ADMIT Internal Medicine; ATTEND Internal Medicine